=== PATIENT | female | born 1945 | race Caucasian/White ===

== ENCOUNTER 2018-09-09 12:58 | Emergency (ER) | payer MEDICARE ==
--- OUTSIDE RECORDS SUMMARY | 2018-09-09 13:11 | XMS REPORT | Continuity of Care Document ---
:1945 External Reference #:[id number] Author Name Lindsey Bradshaw Care Team Providers Name Role Phone Lizett Vargas MD Primary Care Physician Unavailable Payers Date Identification Numbers Payment Provider Subscriber Policy Number: [id number] Medicare Nury Morrison PayID: [id number] [address] [place] [address] Policy Number: [id number] [facility] Nury Morrison PayID: [id number] [address] [place] [address] Problems Active Problems Provider Date Pure hypercholesterolemia Rosalia Brown M.D., FACP Onset: 09/01/2010 Impaired fasting glycaemia Rosalia Brown M.D., FACP Onset: 09/01/2010 Cough variant asthma Rosalia Brown M.D., FACP Onset: 09/01/2010 Essential hypertension Carina Jaramillo N.Nicholas Onset: 03/08/2015 Localized, primary osteoarthritis of the Steph Brian Mejia Onset: 11/17/2015 pelvic region and thigh Family History Date Family Member(s) Observation Comments General Heart Disease General Cancer Father Emphysema at Age 59 Mother [place] Breast Cancer - at Age 59 Siblings 2 1 Sister - Hypoglycemia, Hemorhoids Age 79 1 Sister - Healthy Age 77 Social History Type Date Description Comments Sex Unknown Marital Status Lives With Alone 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 allergies and congestion Acetaminophen-Codeine 5 milliliters at 37.5ml J32.1 Mirta Wakefield, 2017 night as needed M.D. 120-12mg/5ML Solution for cough Omeprazole 1 by mouth every 30caps K21.9 Carina Jaramillo, 08/14/2017 40mg Capsules day N.P. Pravastatin Sodium take 1 tablet by 90tabs E78.00 Carina Jaramillo, 2017 40mg mouth at bedtime N.P. Tablets Advair Diskus Inhale 1 puff By 60units Carina Jaramillo, 06/09/2015 Mouth Two Times N.P. 500-50mcg/Dose Aerosol Daily Spiriva Handihaler Inhale Contents Of 30caps J45.991 Carina Jaramillo, 2015 18mcg One Capsule Via N.P. Capsules Handihaler Every Morning as Directed On Package Ventolin HFA 1-2 puffs every 1units 466.0 Gavin Easton NP 03/25/2014 108(90Base) 4-6 hours as mcg/Act Aerosol needed Sertraline HCL 1 by mouth every 300.00 Rosalia Brown, 03/06/2014 100mg day M.D., FACP Tablets Diltiazem HCL ER take 1 capsule by 90caps Carina Jaramillo, 10/06/2010 240mg mouth every day N.P. Caps ER 24HR Losartan Potassium take 1 tablet by 90tabs I10 Carina Jaramillo, 04/17/2010 100mg mouth once daily N.P. Tablets (pls complete labs for further refills) Mucinex D Unknown 60-600mg Tablets ER 12HR Fish Oil 1 by mouth every Unknown 1000mg Capsules day DR Methylphenidate HCL ER 1 tab po qd 30tabs Unknown 18mg Tablets ER Centrum Silver 1 po qd 30tabs Unknown Tablets Potassium Citrate 2 Tablets Two Rosalia Stephanie, 10mg Times Daily M.D., FACP Powder History Medications Azithromycin two tabs day one, 6tabs J45.41 Carina Jaramillo, 05/14/2018 - 250mg one daily till N.P. 05/24/2018 Tablets gone Prednisone 4 tablets by 40tabs J45.41 Carina Jaramillo, 05/14/2018 - 10mg Tablets mouth for 4 days N.P. 05/30/2018 3 tablets by mouth for 4 days 2 tablets by mouth for 4 days 1 tablet by mouth for 4 days Cheratussin ac 5 - 10 118ml J45.41 Carina Jaramillo, 05/14/2018 - milliliters every N.P. 08/20/2018 100-10mg/5ML Solution 6 hours as needed cough Augmentin 1 tab by mouth 20tabs J32.1 Mirta 01/31/2018 - 875-125mg twice a day X 10 Brian Wakefield 08/20/2018 Tablets days Ciprofloxacin HCL one by mouth 14tabs N39.0 Carina Jaramillo, 10/26/2017 - 250mg twice a day for 7 N.P. 01/31/2018 Tablets days Sulfamethoxazole/Trim one by mouth 14tabs N39.0 Carina Jaramillo, 10/12/2017 - ethoprim DS twice a day for 7 N.P. 10/12/2017 800-160mg days Tablets Ciprofloxacin HCL one by mouth 14tabs N39.0 Carina Jaramillo, 10/12/2017 - 250mg twice a day for 7 N.P. 10/19/2017 Tablets days Atorvastatin Calcium take one tablet 90tabs Carina Jaramillo, 01/11/2017 - by mouth at N.P. 08/14/2017 40mg Tablets bedtime Cheratussin ac 2 teaspoons by 120ml J45.991 Carina Jaramillo, 06/09/2015 - mouth every 4 N.P. 11/02/2015 100-10mg/5ML Syrup hours as needed Pravastatin Sodium take 1 tablet by 90tabs Carina Jaramillo, 09/21/2014 - 40mg mouth at bedtime N.P. 01/11/2017 Tablets Guaifenesin ac 1 teaspoon by 180ml 465.8 Carina Ella, 06/25/2014 - mouth every 4-6 N.P. 05/06/2015 100-10mg/5ML Syrup hours as needed cough Azithromycin 2 tabs by mouth 6tabs 465.8 James Odell NP 06/25/2014 - 250mg on day one 07/13/2014 Tablets followed by 1 tab daily for the last 4 days Triamcinolone Apply a thin 15gm 466.0 Gavin Easton NP 03/25/2014 - Acetonide layer to the 05/06/2015 0.5% Ointment affected area twice daily. Azithromycin 2 tabs by mouth 6tabs 466.0 Gavin Easton NP 03/25/2014 - 250mg every day x1 day, 03/30/2014 Tablets 1 tab by mouth every day x 4 days Azithromycin two tabs day one, 6tabs 466.0 Rosalia Brown, 03/04/2013 - 250mg one daily till M.D., FACP 05/07/2013 Tablets gone Sertraline HCL 3 by mouth every 270tabs 300.00 Rosalia Brown, 09/09/2012 - 25mg day M.D., FACP 03/06/2014 Tablets Trazodone HCL 1 tablet at 30tabs 780.52 Rosalia Brown, 07/30/2012 - 50mg bedtime as needed M.D., FACP 08/27/2013 Tablets Bupropion HCL XL 1 every day every 30tabs 300.00 Rosalia Brown, 07/30/2012 - 150mg morning M.D., FACP 09/09/2012 Tablets ER 24HR Tussin Cough DM 10 cc po every 4 118ml Rosalia Brown, 05/08/2012 - hours prn for M.D., FACP 10/10/2012 100-10mg/5ML Syrup cough Simvastatin take 1 tablet by 90tabs 272.0 Carina Ella, 03/13/2011 - 20mg mouth at bedtime N.P. 09/21/2014 Tablets Perforomist 1 treatment bid 180units Rosalia Brown, 01/10/2011 - 20mcg/2ML M.D., FACP 10/10/2012 Nebulizer Pulmicort inhale twice a 60units Lizett 01/04/2011 - 0.25mg/2ML day via nebulizer Cotton, M.DJamaal 05/08/2012 Suspension Simvastatin take 1 tablet by 90tabs Rosalia Brown, 09/30/2010 - 20mg mouth at bedtime M.D., FACP 03/13/2011 Tablets Syringes And [place] Use as Dir 10units Rosalia Brown, 09/20/2010 - 3ML, 1' 21 [place] # 10 M.D., FACP 10/10/2012 Lidocaine HCL MDV 2 cc inhaled via 30ampules 786.2 Rosalia Brown, 2010 - 1% nebulizer four M.D., FACP 10/10/2012 Solution times a day Metformin ER 1 tablet with 90units Rosalia Brown, 01/13/2010 - 500mg dinner M.D., FACP 03/13/2011 Benzonatate take 1 capsule by 30caps Rosalia Brown, 12/29/2009 - 200mg Caps mouth three times M.D., FACP 01/13/2010 a day Nystatin/Triamcinolon AAA qd prn 1tube Rosalia Brown, 12/07/2009 - e M.D., FACP 10/10/2012 838136-1.1Unit/GM-% Ointment Omeprazole 1 po bid 60caps Carina Jaramillo, 12/07/2009 - 20mg N.P. 08/14/[address] James take 1 capsule by 90caps Rosalia Brown, 09/21/2009 - 200mg mouth three times M.D., FACP 05/06/2015 Capsules a day if needed Advair Diskus 1 inhalation 3Months Rosalia Brown, - twice daily M.D., FACP 12/07/2009 100-50mcg/Dose Aerosol Cozaar 1 Tablet Daily 90tabs Rosalia Cochranon, - 100mg Tablets M.D., FACP 04/17/2010 Zocor 1 Tablet AT 90tabs Rosalia Brown, - 20mg Tablets Bedtime M.D., FACP 09/30/2010 Diltiazem CD 1 Capsule Daily 90caps Rosalia Stephanie, - 240mg Caps M.D., FACP 10/06/2010 ER 24HR Advair Diskus 1 puff twice Unknown - daily 06/09/2015 250-50mcg/Dose Aerosol Aspirin DR 1 everyother day Unknown - 81mg Tablets 08/20/2018 Methedwardphenedate 2 tablets po qd 100tabs Unknown - 5mg as needed 03/04/2013 Tablets Nasal [place] Unknown - 07/13/2014 Nortriptyline HCL 1 caps by mouth Unknown - 10mg every night as 08/20/2018 Capsules directed (not taking) Medications Administered in Office Medication SIG Qnty Indications Ordering Provider Date Inj, Regadenoson, 0.1 MG Gilda Ayala M.D. 09/17/2012 Injection Technetium TC 99M Tetrofosmin, Per Gilda Ayala M.D. 09/17/2012 Unit Dose Up To 40 Millicuries Injection Immunizations CPT Code Status Date Vaccine Lot # [id number] Given 12/26/2017 Fluzone High Dose 38968 Given 05/06/2015 Pneumonia Vaccine [id number] 30023 Given 03/06/2014 Pneumococcal Conjugate Vaccine 13 Valent For [id number] Intramuscular Use Q2035 Given 12/05/2013 Afluria Vaccine 20101 Given 09/09/2012 Tdap - Tetanus/Diptheria/Acellular Pertussis [id number] 89678 Given 12/07/2009 Influenza Virus 3Yrs & Over 49717 Given 04/29/2009 Influenza Virus Vaccine, Pandemic Formulation 36605 Given 11/30/2008 Influenza Virus 3Yrs & Over 82538 Given 09/29/2008 Zoster (Zostavax) Vital Signs Date Vital Result Comment 08/20/2018 1:13pm Height 64.5 inches 5'4.50" Weight 218.50 lb Heart Rate 81 /min BP Systolic 148 mmHg BP Diastolic 64 mmHg Body Temperature 96.9 F O2 % BldC Oximetry 95 % BMI (Body Mass Index) 36.9 kg/m2 05/14/2018 8:47am Height 64.5 inches 5'4.50" Weight 215.38 lb Heart Rate 80 /min BP Systolic 153 mmHg BP Diastolic 71 mmHg Body Temperature 96.9 F O2 % BldC Oximetry 98 % BMI (Body Mass Index) 36.4 kg/m2 01/31/2018 1:04pm Height 64.5 inches 5'4.50" Weight 221.00 lb Heart Rate 90 /min BP Systolic Sitting 144 mmHg BP Diastolic Sitting 72 mmHg Body Temperature 98.0 F O2 % BldC Oximetry 96 % BMI (Body Mass Index) 37.3 kg/m2 10/12/2017 9:02am Height 64.5 inches 5'4.50" Weight 223.00 lb Heart Rate 79 /min BP Systolic 122 mmHg BP Diastolic 66 mmHg Body Temperature 97.8 F O2 % BldC Oximetry 96 % BMI (Body Mass Index) 37.7 kg/m2 08/14/2017 12:44pm Height 64.5 inches 5'4.50" Weight 224.00 lb Heart Rate 88 /min BP Systolic 120 mmHg BP Diastolic 68 mmHg Body Temperature 98.1 F O2 % BldC Oximetry 95 % BMI (Body Mass Index) 37.9 kg/m2 06/07/2016 10:05am Weight 215.00 lb Heart Rate 68 /min BP Systolic Sitting 124 mmHg BP Diastolic Sitting 64 mmHg O2 % BldC Oximetry 98 % 12/22/2015 10:35am Heart Rate 73 /min BP Systolic 162 mmHg BP Diastolic 71 mmHg Pain Level 4 11/17/2015 9:36am Height 65 inches 5'5" Weight 237.00 lb Heart Rate 64 /min BP Systolic Sitting 124 mmHg BP Diastolic Sitting 72 mmHg Respiratory Rate 18 /min Pain Level 8 at the worst BMI (Body Mass Index) 39.4 kg/m2 11/02/2015 3:42pm Height 64.5 inches 5'4.50" Weight 237.00 lb Heart Rate 82 /min BP Systolic 142 mmHg BP Diastolic 72 mmHg Body Temperature 98.7 F O2 % BldC Oximetry 94 % BMI (Body Mass Index) 40.0 kg/m2 06/09/2015 11:21am Height 64.5 inches 5'4.50" Weight 229.00 lb Heart Rate 78 /min BP Systolic Sitting 142 mmHg BP Diastolic Sitting 88 mmHg Respiratory Rate 15 /min Body Temperature 98.7 F O2 % BldC Oximetry 98 % BMI (Body Mass Index) 38.7 kg/m2 05/06/2015 9:07am Height 64.5 inches 5'4.50" Weight 227.50 lb Heart Rate 79 /min BP Systolic Sitting 127 mmHg BP Diastolic Sitting 63 mmHg Respiratory Rate 18 /min Body Temperature 97.5 F Pain Level 2 O2 % BldC Oximetry 98 % BMI (Body Mass Index) 38.4 kg/m2 10/12/2014 3:12pm Height 65 inches 5'5" Weight 228.00 lb Pain Level 9 BMI (Body Mass Index) 37.9 kg/m2 09/21/2014 1:04pm Height 65 inches 5'5" Weight 228.00 lb Pain Level 1 BMI (Body Mass Index) 37.9 kg/m2 09/03/2014 8:45am Weight 228.00 lb Heart Rate 73 /min BP Systolic Sitting 133 mmHg BP Diastolic Sitting 64 mmHg 08/07/2014 10:35am Height 65 inches 5'5" Weight 220.00 lb Heart Rate 70 /min BP Systolic 152 mmHg BP Diastolic 89 mmHg Pain Level 0 BMI (Body Mass Index) 36.6 kg/m2 07/15/2014 2:49pm Height 65 inches 5'5" Weight 220.00 lb Heart Rate 71 /min BP Systolic Sitting 128 mmHg BP Diastolic Sitting 88 mmHg Pain Level 7 BMI (Body Mass Index) 36.6 kg/m2 06/25/2014 11:46am Height 65 inches 5'5" Weight 223.00 lb Heart Rate 76 /min BP Systolic Sitting 150 mmHg BP Diastolic Sitting 82 mmHg Body Temperature 96.5 F O2 % BldC Oximetry 96 % BMI (Body Mass Index) 37.1 kg/m2 03/25/2014 3:58pm Height 65 inches 5'5" Weight 225.00 lb Heart Rate 103 /min BP Systolic 160 mmHg 146/80 recheck BP Diastolic 80 mmHg 146/80 recheck Body Temperature 101.6 F O2 % BldC Oximetry 95 % BMI (Body Mass Index) 37.4 kg/m2 03/06/2014 10:30am Height 65 inches 5'5" Weight 220.50 lb Heart Rate 70 /min BP Systolic Sitting 130 mmHg BP Diastolic Sitting 60 mmHg Body Temperature 97.0 F BMI (Body Mass Index) 36.7 kg/m2 08/27/2013 11:54am Weight 206.50 lb Heart Rate 72 /min BP Systolic Sitting 146 mmHg BP Diastolic Sitting 76 mmHg Body Temperature 99.6 F 05/07/2013 9:04am Weight 209.00 lb Heart Rate 86 /min Respiratory Rate 15 /min Body Temperature 98.4 F 03/04/2013 10:11am Height 65 inches 5'5" Weight 207.50 lb Heart Rate 94 /min BP Systolic Sitting 140 mmHg BP Diastolic Sitting 82 mmHg Body Temperature 99.6 F O2 % BldC Oximetry 97 % BMI (Body Mass Index) 34.5 kg/m2 01/16/2013 2:46pm Height 65 inches 5'5" Weight 214.00 lb Heart Rate 64 /min BP Systolic 135 mmHg BP Diastolic 72 mmHg BMI (Body Mass Index) 35.6 kg/m2 01/14/2013 3:19pm Weight 214.00 lb Heart Rate 78 /min BP Systolic Sitting 124 mmHg BP Diastolic Sitting 82 mmHg 10/10/2012 1:18pm Weight 220.25 lb Heart Rate 72 /min BP Systolic Sitting 138 mmHg BP Diastolic Sitting 60 mmHg 09/09/2012 11:06am Height 65 inches 5'5" Weight 213.00 lb Heart Rate 88 /min BP Systolic Sitting 132 mmHg BP Diastolic Sitting 80 mmHg BMI (Body Mass Index) 35.4 kg/m2 07/30/2012 1:05pm Weight 219.00 lb Heart Rate 100 /min BP Systolic Sitting 144 mmHg BP Diastolic Sitting 70 mmHg 05/08/2012 9:50am Height 65 inches 5'5" Weight 211.00 lb Heart Rate 72 /min BP Systolic Sitting 140 mmHg BP Diastolic Sitting 60 mmHg BMI (Body Mass Index) 35.1 kg/m2 12/07/2011 2:31pm Height 65 inches 5'5" Weight 205.00 lb Heart Rate 64 /min BP Systolic 138 mmHg BP Diastolic 75 mmHg BMI (Body Mass Index) 34.1 kg/m2 03/13/2011 11:37am Height 65 inches 5'5" Weight 195.00 lb Heart Rate 68 /min BP Systolic Sitting 134 mmHg L BP Diastolic Sitting 70 mmHg L BMI (Body Mass Index) 32.4 kg/m2 09/15/2010 4:19pm Height 65 inches 5'5" Weight 195.00 lb Heart Rate 62 /min BP Systolic Sitting 128 mmHg BP Diastolic Sitting 70 mmHg O2 % BldC Oximetry 94 % BMI (Body Mass Index) 32.4 kg/m2 09/01/2010 12:56pm Height 65 inches 5'5" Weight 193.00 lb Heart Rate 78 /min BP Systolic Sitting 156 mmHg BP Diastolic Sitting 66 mmHg BMI (Body Mass Index) 32.1 kg/m2 04/21/2010 2:05pm Weight 209.00 lb Heart Rate 78 /min BP Systolic 124 mmHg BP Diastolic 70 mmHg 01/13/2010 2:26pm Weight 227.00 lb Heart Rate 72 /min BP Systolic 164 mmHg BP Diastolic 68 mmHg 12/07/2009 1:42pm Height 65 inches 5'5" Weight 227.00 lb Heart Rate 64 /min BP Systolic 138 mmHg BP Diastolic 64 mmHg BMI (Body Mass Index) 37.8 kg/m2 Results Test Date Facility Test Result H/L Range Note Laboratory test 11/27/2017 [facility] Surgical SEE RESULT 1 , [address] [place] [address] [phone] Urine Culture And 10/12/2017 [facility] Urine Culture SEE RESULT [address] [place] [address] [phone] Ua Routine 10/12/2017 [facility] Ua Specific 1015 Gem Ua PH 6 Ua Color yellow Ua Appera clear Ua WBC ++ Ua Protein negative Ua Glucose negative Ua Ketones negative Ua Bilirubin negtive Ua Urobilinogen negative Ua Nitrite negative Ua Occult Blood trace Lipid Profile 07/23/2017 [facility] Triglycerides 124 mg/dL 4 (Trig/Chol/HDL) [address] [place] [address] [phone] Cholesterol 205 mg/dL 5 HDL Cholesterol 75.5 mg/dL 6 LDL Cholesterol 105 mg/dL 7 Liver Function 07/23/2017 [facility] Total Protein 6.5 g/dL N 6.4-8.[address] [place] [address] [phone] Albumin 4.2 g/dL N 3.2-5.2 Globulin 2.3 g/dL N 2-4 Albumin/Globulin Ratio 1.8 N 1-3 Total Bilirubin 0.40 mg/dL N 0.2-1.0 Direct Bilirubin 0.10 mg/dL N 0.03-0.18 Indirect Bilirubin 0.3 mg/dL N 0.3-1.0 Alkaline Phosphatase 78 U/L N 34-104 Alt 30 U/L N 7-52 Ast 28 U/L N 13-39 Creatinine Clearance 01/16/2017 [facility] Urine Collection Time [address] [place] [address] [phone] Urine Total Volume 1550 mL Creatinine 1.47 mg/dL High 0.51-0.95 Urine Random Creatinine 78.23 mg/dL Creatinine Clearance 57 mL/min Low 88-128 Comp Metabolic Panel 01/10/2017 [facility] Sodium 141 mmol/L N 133-[address] [place] [address] [phone] Potassium 4.7 mmol/L N 3.5-5.0 Chloride 104 mmol/L N 101-111 Co2 Carbon Dioxide 32 mmol/L N 22-32 Anion Gap 5 mmol/L N 2-11 Glucose 97 mg/dL N 70-100 Blood Urea Nitrogen 31 mg/dL High 6-24 Creatinine 1.50 mg/dL High 0.51-0.95 BUN/Creatinine Ratio 20.7 High 8-20 Calcium 9.4 mg/dL N 8.6-10.3 Total Protein 6.7 g/dL N 6.4-8.9 Albumin 4.4 g/dL N 3.2-5.2 Globulin 2.3 g/dL N 2-4 Albumin/Globulin Ratio 1.9 N 1-3 Total Bilirubin 0.50 mg/dL N 0.2-1.0 Alkaline Phosphatase 86 U/L N 34-104 Alt 30 U/L N 7-52 Ast 29 U/L N 13-39 Egfr Non- 34.0 >60 Egfr 43.8 >60 8 Liver Function 01/10/2017 [facility] Direct 0.10 mg/dL N 0.03- 0.[address] [place] [address] [phone] Indirect Bilirubin 0.4 mg/dL N 0.3-1.0 Lipid Profile 01/10/2017 [facility] Triglycerides 85 mg/dL 9 (Trig/Chol/HDL) [address] [place] [address] [phone] Cholesterol 258 mg/dL 10 HDL Cholesterol 93.1 mg/dL 11 LDL Cholesterol 148 mg/dL 12 Lipid Profile 01/12/2015 [facility] Triglycerides 123 mg/dL N 13 (Trig/Chol/HDL) [address] [place] [address] [phone] Cholesterol 214 mg/dL N 14 HDL Cholesterol 85.9 mg/dL N 15 LDL Cholesterol 104 mg/dL N 16 Liver Function 01/12/2015 [facility] Direct 0.10 mg/dL N 0.03- 0.18 Panel [address] [place] [address] [phone] Indirect Bilirubin 0.3 mg/dL N 0.3-1.0 Comp Metabolic Panel 01/12/2015 [facility] Sodium 139 mmol/L N 133-145 [address] [place] [address] [phone] Potassium 4.7 mmol/L N 3.5-5.0 Chloride 103 mmol/L N 101-111 Co2 Carbon Dioxide 30 mmol/L N 22-32 Anion Gap 6 mmol/L N 2-11 Glucose 110 mg/dL High 70-100 Blood Urea Nitrogen 24 mg/dL N 6-24 Creatinine 1.46 mg/dL High 0.51-0.95 BUN/Creatinine Ratio 16.4 N 8-20 Calcium 9.5 mg/dL N 8.6-10.3 Total Protein 6.6 g/dL N 6.4-8.9 Albumin 4.2 g/dL N 3.2-5.2 Globulin 2.4 g/dL N 2-4 Albumin/Globulin Ratio 1.8 N 1-3 Total Bilirubin 0.40 mg/dL N 0.2-1.0 Alkaline Phosphatase 81 U/L N 34-104 Alt 23 U/L N 7-52 Ast 25 U/L N 13-39 Egfr Non- 35.2 N >60 Egfr 45.3 N >60 17 Liver Function 09/21/2014 [facility] Total Protein 6.9 g/dL N 6.4-8.9 Panel [address] [place] [address] [phone] Albumin 4.4 g/dL N 3.2-5.2 Globulin 2.5 g/dL N 2-4 Albumin/Globulin Ratio 1.8 N 1-3 Total Bilirubin 0.40 mg/dL N 0.2-1.0 Direct Bilirubin 0.10 mg/dL N 0.03-0.18 Indirect Bilirubin 0.3 mg/dL N 0.3-1.0 Alkaline Phosphatase 80 U/L N 34-104 Alt 22 U/L N 7-52 Ast 23 U/L N 13-39 Lipid Profile 09/21/2014 [facility] Triglycerides 112 mg/dL N 18 (Trig/Chol/HDL) [address] [place] [address] [phone] Cholesterol 279 mg/dL N 19 HDL Cholesterol 84.6 mg/dL N 20 LDL Cholesterol 172 mg/dL N 21 Laboratory test 03/06/2014 [facility] Hemoglobin A1c 5.8 5-7 finding Comp Metabolic Panel 09/13/2013 [facility] Sodium 138 mmol/L N 133-145 [address] [place] [address] [phone] Potassium 4.0 mmol/L N 3.7-5.6 Chloride 106 mmol/L N 101-111 Co2 Carbon Dioxide 27 mmol/L N 22-32 Anion Gap 5 mmol/L N 2-11 Glucose 136 mg/dL High 70-100 Blood Urea Nitrogen 34 mg/dL High 6-24 Creatinine 1.28 mg/dL High 0.51-0.95 BUN/Creatinine Ratio 26.6 High 8-20 Calcium 9.2 mg/dL N 8.6-10.3 Total Protein 6.9 g/dL N 6.4-8.9 Albumin 4.3 g/dL N 3.2-5.2 Globulin 2.6 g/dL N 2-4 Albumin/Globulin Ratio 1.7 N 1-3 Total Bilirubin 0.20 mg/dL N 0.2-1.0 Alkaline Phosphatase 74 U/L N 34-104 Alt 29 U/L N 7-52 Ast 26 U/L N 13-39 Egfr Non- 41.2 N >60 Egfr 53.0 N >60 22 Laboratory test 09/13/2013 [facility] Magnesium 2.0 mg/dL N 1.9-2.7 finding [address] [place] [address] [phone] Troponin I 0.01 ng/mL N <0.03 23 TSH (Thyroid Stimulating Horm) 1.91 IU/mL N 0.34-5.60 CBC Auto Diff 09/13/2013 [facility] White Blood 9.9 10^3/uL N 4.8-10.[address] [place] [address] [phone] Red Blood Count 4.64 10^6/uL N 4.0-5.4 Hemoglobin 13.1 g/dL N 12.0-16.0 Hematocrit 39 % N 35-47 Mean Corpuscular Volume 85 fL N 80-97 Mean Corpuscular Hemoglobin 28 pg N 27-31 Mean Corpuscular HGB Conc 33 g/dL N 31-36 Red Cell Distribution Width 14 % N 10.5-15 Platelet Count 279 10^3/uL N 150-450 Mean Platelet Volume 7 um3 Low 7.4-10.4 Abs Neutrophils 6.3 10^3/uL N 1.5-7.7 Abs Lymphocytes 2.2 10^3/uL N 1.0-4.8 Abs Monocytes 1.1 10^3/uL High 0-0.8 Abs Eosinophils 0.2 10^3/uL N 0-0.6 Abs Basophils 0.1 10^3/uL N 0-0.2 Abs Nucleated RBC 0 10^3/uL N Granulocyte % 64.0 % N 38-83 Lymphocyte % 22.2 % Low 25-47 Monocyte % 11.0 % High 1-9 Eosinophil % 2.1 % N 0-6 Basophil % 0.7 % N 0-2 Nucleated Red Blood Cells % 0 N Comp Metabolic Panel 08/22/2013 [facility] Sodium 141 mmol/L N 133-[address] [place] [address] [phone] Potassium 5.2 mmol/L N 3.7-5.6 Chloride 104 mmol/L N 101-111 Co2 Carbon Dioxide 30 mmol/L N 22-32 Anion Gap 7 mmol/L N 2-11 Glucose 101 mg/dL High 70-100 Blood Urea Nitrogen 28 mg/dL High 6-24 Creatinine 1.35 mg/dL High 0.51-0.95 BUN/Creatinine Ratio 20.7 High 8-20 Calcium 9.7 mg/dL N 8.6-10.3 Total Protein 6.8 g/dL N 6.4-8.9 Albumin 4.5 g/dL N 3.2-5.2 Globulin 2.3 g/dL N 2-4 Albumin/Globulin Ratio 2.0 N 1-3 Total Bilirubin 0.40 mg/dL N 0.2-1.0 Alkaline Phosphatase 76 U/L N 34-104 Alt 22 U/L N 7-52 Ast 26 U/L N 13-39 Egfr Non- 38.8 N >60 Egfr 49.9 N >60 25 Lipid Profile 08/22/2013 [facility] Triglycerides 95 mg/dL N 26 (Trig/Chol/HDL) [address] [place] [address] [phone] Cholesterol 221 mg/dL N 27 HDL Cholesterol 79.7 mg/dL N 28 LDL Cholesterol 122 mg/dL N 29 Laboratory test 08/22/2013 [facility] Hemoglobin A1c 6.4 % High Less than [address] [place] [address] [phone] Surgical 09/19/2012 [facility] S RUN [address] DATE: [place] [address] [phone] <SEE NOTE> Clotest 09/19/2012 [facility] Clotest (SEE [address] NOTE) [place] [address] [phone] CBC With Manual 09/19/2012 [facility] White Blood 7.3 4.8- 10.[address] Count 10^3/uL [place], [place] [address] [phone] Red Blood Count 4.56 10^6/uL 4.0-5.4 Hemoglobin 13.3 g/dL 12.0-16.0 Hematocrit 40 % 35-47 Mean Corpuscular Volume 88 fL 80-97 Mean Corpuscular Hemoglobin 29 pg 27-31 Mean Corpuscular HGB Conc 33 g/dL 31-36 Red Cell Distribution Width 14 % 10.5-15 Platelet Count 286 10^3/uL 150-450 Mean Platelet Volume 8 um3 7.4-10.4 Abs Neutrophils 4.3 10^3/uL 1.5-7.7 Abs Lymphocytes 1.5 10^3/uL 1.0-4.8 Abs Monocytes 1.0 10^3/uL High 0-0.8 Abs Eosinophils 0.4 10^3/uL 0-0.6 Abs Basophils 0 10^3/uL 0-0.2 Abs Nucleated RBC 0 10^3/uL Neutrophil % 60 % 38-83 Lymphocytes % 26 % 25-47 Monocytes % 10 % 0-13 Eosinophils % 3 % 0-6 Basophil % 1 % 0-2 RBC Morphology Normal Normal Laboratory test 09/19/2012 [facility] TSH (Thyroid 2.18 0.34- 5.[address] Stimulating miu/[place] [address] Horm) [phone] Laboratory test 04/30/2012 [facility] Glucose 85 mg/dL 70- 100 33 finding [address] [place] [address] [phone] Liver Function 04/30/2012 [facility] Total Protein 6.4 g/dL 6.2-8.1 Panel [address] [place] [address] [phone] Albumin 4.1 g/dL 3.2-5.2 Globulin 2.3 g/dL 2-4 Albumin/Globulin Ratio 1.8 1-3 Total Bilirubin 0.5 mg/dL 0.4-1.5 Direct Bilirubin < 0.1 mg/dL Low 0.1-0.5 Indirect Bilirubin (SEE NOTE) mg/dL 0.3-1.0 34 Alkaline Phosphatase 85 U/L 30-110 Alt 26 U/L 14-54 Ast 27 U/L 12-42 Lipid Profile 04/30/2012 [facility] Triglycerides 65 mg/dL 40 -200 (Trig/Chol/HDL) [address] [place] [address] [phone] Cholesterol 223 mg/dL High Less than 200 HDL Cholesterol 104 mg/dL High 40-60 35 Cholesterol/HDL Ratio 2.1 Average 1-4.44 LDL Cholesterol 106.0 mg/dL High Less Than 100 36 Laboratory test 03/07/2011 [facility] Hemoglobin A1c 5.6 % Less Than 37 finding [address] [facility] [address] [place] [address] [phone] Glucose 83 mg/dL 70-100 Lipid Profile 03/07/2011 [facility] Triglyceride 83 mg/dL 40- 200 (Trig/Chol/HDL) [address] [place] [address] [phone] Cholesterol 257 mg/dL High Less Than 200 38 High Density Lipoprotein 90 mg/dL High 40-60 39 Cholesterol/HDL Ratio 2.86 AVERAGE 1-4.44 Low Density Lipoprotein 150 mg/dL High Less Than 100 40 Sensitivities For Urine Culture 11/20/2010 [facility] Ampicillin 8 S [address] [place] [address] [phone] Ciprofloxacin <=0.5 S Nitrofurantoin <=16 S Levofloxacin 2 S Linezolid >=8 R Penicillin 0.25 S Tetracycline >=16 R Tigecycline <=0.12 S Vancomycin 2 S Urine Culture & 11/20/2010 [facility] Urine Culture ENTEROCOCCUS BLADIMIR [address] Sensitivi <SEE NOTE> [place] [address] [phone] Urine Culture Sensitivi ENTEROCOCCUS BLADIMIR <SEE NOTE> 42 Laboratory test 11/20/2010 [facility] Lipase 50 U/L 22-[address] [place] [address] [phone] CBC With Manual 11/20/2010 [facility] White Blood 11.7 CUMM High 4.8-10.[address] [place] [address] [phone] Red Cell Count 4.86 CUMM 4.2-5.4 Hemoglobin 14.0 g/dL 12.0-16.0 Hematocrit 41 % 35-47 Mean Corpuscular Volume 84 um3 79-97 Mean Corpuscular Hemoglob 29 pg 27-31 Mean Corpuscular HGB Cone 34 g/dL 32-36 Redcell Distribution WDTH 14 % 10.5-15 Platelet Count 258 CUMM 150-450 Mean Platelet Volume 8.0 um3 7.4-10.4 Polysegmented Neutrophil 84 % High 38-83 Lymphocyte 8 % Low 25-47 Monocyte 7 % 0-13 Eosinophil 1 % 0-6 Absolute Neutrophil Count 9.8 RBC Morphology NORMAL Comp Metabolic Panel 11/20/2010 [facility] Sodium 137 mmol/L 135-[address] [place] [address] [phone] Potassium 4.2 mmol/L 3.5-5.0 Chloride 103 mmol/L 101-111 Co2 (Carbon Dioxide) 26.0 mmol/L 22-32 Anion Gap 8.0 mmol/L 2-11 43 Glucose 120 mg/dL High 70-100 BUN 29 mg/dL High 6-24 Creatinine 1.4 mg/dL 0.50-1.40 One Over Creatinine 0.71 BUN/Creatinine Ratio 20.7 High 8-20 Calcium 9.5 mg/dL 8.1-9.9 Total Protein 6.4 GM/DL 6.2-8.1 Albumin 4.0 GM/DL 3.2-5.2 Globulin 2.4 GM/DL 2-4 Albumin/Globulin Ratio 1.7 1-3 Bilirubin Total 0.8 mg/dL 0.4-1.5 44 Alkaline Phosphatase 69 U/L 30-110 Alt (SGPT) 28 U/L 14-54 Ast (Sgot) 29 U/L 12-42 eGFR Non- 37.5 > 60 eGFR 48.2 > 60 45 Urinalysis W/Microscopic 11/20/2010 [facility] Ua Color YELLOW Yellow [address] [place] [address] [phone] Appearance-Urine CLEAR Clear Specific Gem-Ur 1.015 1.010-1.030 Esterase-Urine 1+ Abnormal Negative Nitrite NEGATIVE Negative Krryqrojkooe-Cl-QHU NEGATIVE Negative Protein-Urine NEGATIVE Negative PH-Urine 7.0 5-9 Blood-Urine NEGATIVE Negative Ketones-Urine TRACE Abnormal Negative Bilirubin-Ur NEGATIVE Negative Glucose-Urine NEGATIVE Negative WBC-Urine 3-6 0-5 RBC-Urine 0-2 0-2 Epith Cells-Ur FEW None Bacteria-Urine 2+ None Laboratory test 08/17/2010 [facility] Hemoglobin A1c 5.9 % Less Than [address] 6[address]0 [place] [address] [phone] Insulin 5.9 mcIU/mL 2.6-24.9 47 Vitamin D, 1,25 Dihydroxy 46 pg/mL 18-78 48 CBC With 08/17/2010 [facility] White Blood 14.0 CUMM High 4.8- 10.8 Manual Diff [address] [place] [address] [phone] Red Cell Count 4.71 CUMM 4.2-5.4 Hemoglobin 12.8 g/dL 12.0-16.0 Hematocrit 40 % 35-47 Mean Corpuscular Volume 85 um3 79-97 Mean Corpuscular Hemoglob 27 pg 27-31 Mean Corpuscular HGB Cone 32 g/dL 32-36 Redcell Distribution WDTH 14 % 10.5-15 Platelet Count 263 CUMM 150-450 Mean Platelet Volume 8.8 um3 7.4-10.4 Polysegmented Neutrophil 54 % 38-83 Lymphocyte 17 % Low 25-47 Monocyte 7 % 0-13 Eosinophil 21 % High 0-6 Atypical Lymph 1 % 0-6 Absolute Neutrophil Count 7.5 RBC Morphology NORMAL Manual Diff Comments (SEE NOTE) 49 Laboratory test finding 08/17/2010 [facility] Glucose 93 mg/dL 70-[address] [place] [address] [phone] Ferritin 16 NG/ML 11.0-307 Vitamin B12 730 pg/mL 180-914 Thyroxine Free 0.74 ng/dL 0.61-1.24 T3 Free 2.85 pg/mL 2.39-6.79 TSH 1.67 MIU/ML 0.34-5.60 Lipid Profile 08/17/2010 [facility] Triglyceride 51 mg/dL 40- 200 (Trig/Chol/HDL) [address] [place] [address] [phone] Cholesterol 182 mg/dL Less Than 200 50 High Density Lipoprotein 82 mg/dL High 40-60 51 Cholesterol/HDL Ratio 2.22 AVERAGE 1-4.44 Low Density Lipoprotein 90 mg/dL Less Than 100 52 1 [id number] 2 SEE RESULT BELOW Name: NURY MORRISON : [address]: Damon Padilla MD Acct: [id number] Unit: [id number] AGE: 72 Location: [facility] Re11/27/17 SEX: F Status: DEP REF SPEC: [id number] RAMIREZ: 11/27/17-141 [facility] [address]: Damon Padilla MD REQ: [id number] RECD: 11/27/17 STATUS: ANNA LOPEZ DR: Carina Jaramillo 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 Colon, cecum, biopsy: -- Tubular adenomas (2). -- No high-grade dysplasia or malignancy. 2. Colon, ascending, biopsy: -- Tubular adenoma. -- No high grade dysplasia or malignancy. 3. Colon, mid ascending, biopsy: -- Tubular adenoma. -- No high grade dysplasia or malignancy. 4. Colon, proximal transverse, biopsy: -- Tubular adenoma. -- No high grade dysplasia or malignancy. 5. Colon, at 55 cm, biopsy: -- Tubular adenoma. -- No high grade dysplasia or malignancy. 6. Colon, at 25 cm, biopsy: -- Tubular adenoma. -- No high grade dysplasia or malignancy. CONTINUED ON NEXT PAGE DEPARTMENT OF PATHOLOGY, [address] [place] [address] Dwight Rodriguez M.D. Director [facility] # [id number] RUN DATE: 11/28/17 [facility] LAB LIVE PAGE 2 Patient: NURY MORRISON [id number] (Continued) CLINICAL HISTORY (Continued) CLINICAL HISTORY History of polyps POST-OPERATIVE DIAGNOSIS Colonoscopy: cecal polyps (2) - biopsy; ascending, mid ascending, proximal transverse, 55 cm, 25 cm, all snare GROSS DESCRIPTION 1. The specimen is received in formalin labeled, Biopsy Cecal Polyps and consists of three speckled asher-pink irregular to polypoid soft tissue fragments ranging from 0.3 x 0.2 x 0.2 cm to 0.5 x 0.4 x 0.3 cm, which are entirely submitted in one cassette. 2. The specimen is received in formalin labeled, Ascending Colon Polyp, and consists of two yellow-white irregular to polypoid soft tissue fragments measuring 0.3 x 0.2 x 0.1 cm and 0.3 x 0.2 x 0.2 cm, which are entirely submitted in one cassette. 3. The specimen is received in formalin labeled, Mid-Ascending Colon Polyp , consists of a 0.8 x 0.4 x 0.3 cm asher-white irregular to polypoid soft tissue fragment, which is entirely submitted in one cassette. 4. The specimen is received in formalin labeled, Proximal Transverse Colon Polyp, and consists of a 0.6 x 0.4 x 0.3 cm asher-white irregular to polypoid soft tissue fragment, which is entirely submitted in one cassette. 5. The specimen is received in formalin labeled, Colon Polyp at 55 cm, consists of a 1.0 x 0.5 by up to 0.3 cm aggregate of yellow white irregular to polypoid soft tissue fragments, which is entirely submitted in one cassette. 6. The specimen is received in formalin labeled, Colon Polyp at 25 Cm, and consists of a 0.8 by up to 0.5 x 0.4 cm white-pink irregular to polypoid soft tissue fragment, which is inked, trisected and entirely submitted in one cassette. Signed by and Reported on: Ciara Ayala MD 11/28/17 1114 END OF REPORT DEPARTMENT OF PATHOLOGY, [address] [place] [address] Dwight Rodriguez M.D. Director [facility] # [id number] 3 SEE RESULT BELOW Name: NURY MORRISON : [address]: Carina Jaramillo NP Acct: [id number] Unit: [id number] AGE: 72 Location: [facility] Re10/12/17 SEX: F Status: REG REF SPEC: [id number] RAMIREZ: 10/12/17 [facility] [address]: Carina Jaramillo NP REQ: [id number] RECD: 10/12/17 STATUS: COMP _ SOURCE: URINE SPDESC: ORDERED: Urine Culture COMMENTS: [id number] Urine Source: Random Procedure Result Reported Site Urine Culture Final 10/13/17- 1249 ML No Growth (<1,000 CFU/mL) * ML - Main Lab . END OF REPORT DEPARTMENT OF PATHOLOGY, [address] [place] [address] Dwight Rodriguez M.D. Director [facility] # [id number] 4 Desirable: <150 Borderline High: 150-199 High: 200-499 Very High: >500 5 Desirable: <200 Borderline High: 200-239 High: >239 6 Low: <40 Desirable: 40-60 High: >60 7 Desirable: <100 Near Optimal: 100-129 Borderline High: 130-159 High: 160-189 Very High: >189 8 Because ethnic data is not always readily available, this report includes an eGFR for both -Americans and non- Americans. The National Kidney Disease Education Program (NKDEP) does not endorse the use of the MDRD equation for patients that are not between the ages of 18 and 70, are , have extremes of body size, muscle mass, or nutritional status, or are non- or non-. According to the National Kidney Foundation, irrespective of diagnosis, the stage of the disease is based on the level of kidney function: Stage Description GFR(mL/min/1.73 m(2)) 1 Kidney damage with normal or decreased GFR 90 2 Kidney damage with mild decrease in GFR 60-89 3 Moderate decrease in GFR 30-59 4 Severe decrease in GFR 15-29 5 Kidney failure <15 (or dialysis) 9 Desirable: <150 Borderline High: 150-199 High: 200-499 Very High: >500 10 Desirable: <200 Borderline High: 200-239 High: >239 11 Low: <40 Desirable: 40-60 High: >60 12 Desirable: <100 Near Optimal: 100-129 Borderline High: 130-159 High: 160-189 Very High: >189 13 Desirable <150 Borderline high 150-199 High 200-499 Very High >500 14 Desirable <200 Borderline high 200-239 High >239 15 Low <40 Desirable: 40-60 High: >60 16 Desirable: <100 mg/dL Near Optimal: 100-129 mg/dL Borderline High: 130-159 mg/dL High: 160-189 mg/dL Very High: >189 mg/dL 17 Because ethnic data is not always readily available, this report includes an eGFR for both -Americans and non- Americans. The National Kidney Disease Education Program (NKDEP) does not endorse the use of the MDRD equation for patients that are not between the ages of 18 and 70, are , have extremes of body size, muscle mass, or nutritional status, or are non- or non-. According to the National Kidney Foundation, irrespective of diagnosis, the stage of the disease is based on the level of kidney function: Stage Description GFR(mL/min/1.73 m(2)) 1 Kidney damage with normal or decreased GFR 90 2 Kidney damage with mild decrease in GFR 60-89 3 Moderate decrease in GFR 30-59 4 Severe decrease in GFR 15-29 5 Kidney failure <15 (or dialysis) 18 Desirable <150 Borderline high 150-199 High 200-499 Very High >500 19 Desirable <200 Borderline high 200-239 High >239 20 Low <40 Desirable: 40-60 High: >60 21 Desirable: <100 mg/dL Near Optimal: 100-129 mg/dL Borderline High: 130-159 mg/dL High: 160-189 mg/dL Very High: >189 mg/dL 22 Because ethnic data is not always readily available, this report includes an eGFR for both -Americans and non- Americans. The National Kidney Disease Education Program (NKDEP) does not endorse the use of the MDRD equation for patients that are not between the ages of 18 and 70, are , have extremes of body size, muscle mass, or nutritional status, or are non- or non-. According to the National Kidney Foundation, irrespective of diagnosis, the stage of the disease is based on the level of kidney function: Stage Description GFR(mL/min/1.73 m(2)) 1 Kidney damage with normal or decreased GFR 90 2 Kidney damage with mild decrease in GFR 60-89 3 Moderate decrease in GFR 30-59 4 Severe decrease in GFR 15-29 5 Kidney failure <15 (or dialysis) 23 Reference Range and Interpretation: TnI (ng/mL) Interpretation Less Than 0.03 ng/mL Not supportive of diagnosis of GA 0.03 - 0.50 ng/mL Indeterminate: suggest serial studies if clinically indicated. Greater than 0.5 ng/mL Consistent with diagnosis of GA 24 FASTING 12 HOUR 25 Because ethnic data is not always readily available, this report includes an eGFR for both -Americans and non- Americans. The National Kidney Disease Education Program (NKDEP) does not endorse the use of the MDRD equation for patients that are not between the ages of 18 and 70, are , have extremes of body size, muscle mass, or nutritional status, or are non- or non-. According to the National Kidney Foundation, irrespective of diagnosis, the stage of the disease is based on the level of kidney function: Stage Description GFR(mL/min/1.73 m(2)) 1 Kidney damage with normal or decreased GFR 90 2 Kidney damage with mild decrease in GFR 60-89 3 Moderate decrease in GFR 30-59 4 Severe decrease in GFR 15-29 5 Kidney failure <15 (or dialysis) 26 Desirable <150 Borderline high 150-199 High 200-499 Very High >500 27 Desirable <200 Borderline high 200-239 High >239 28 Low <40 Desirable: 40-60 High: >60 29 Desirable <100 Near Optimal 100-129 Borderline high 130-159 High 160-189 Very High >189 30 Therapeutic target for the treatment of diabetes Mellitus patients is <7% HBA1C, and in selective patients <6.0%.Please refer to Citizen Of [place] Diabetes Association Diabetic care guidelines for further information. 31 RUN DATE: 09/20/12 [facility] LAB LIVE PAGE 1 RUN TIME: 25[address] [place], [place] [address] Specimen Inquiry Name: NURY MORRISON : [address]: Damon Padilla MD Acct: [id number] Unit: [id number] AGE: 67 Location: ENDO Re09/19/12 SEX: F Status: REG REF SPEC: [id number] RAMIREZ: 09/19/12- SUBM DR: Damon Padilla MD REQ: [id number] RECD: 09/19/12 STATUS: ANNA LOPEZ DR: Rosalia Brown MD _ ORDERED: LEVEL IV/2 FINAL DIAGNOSIS 1. Esophagus, biopsy: A. Benign squamous mucosa with mild reactive hyperplasia. B. No evidence of increased intraepithelial eosinophils. 2. Colon, hepatic flexure, biopsy: A. Tubular adenoma. B. No high grade dysplasia or malignancy. CLINICAL HISTORY Gastroesophageal reflux disease; screening colonoscopy with history of polyps POST-OPERATIVE DIAGNOSIS Esophagus - hiatal hernia, biopsied for eosinophilic esophagitis; stomach - gastritis, biopsied; duodenum - normal. Screening colonoscopy to cecum - 2 polyps hepatic flexure GROSS DESCRIPTION 1. The specimen is received in formalin labeled Nury Morrison, Esophageal Biopsy, and consists of three asher-white focally pink portions of tissue that measure 0.5 x 0.1 x 0.1 cm., 0.4 x 0.3 x 0.1 cm., and 0.4 x 0.2 x 0.1 cm. Submitted entirely, one cassette. 2. The specimen is received in formalin labeled Nury Morrison, Hepatic Flexure Polyps, and consists of two asher-pink polypoid fragments of tissue that measure 0.4 x 0.2 x 0.2 cm. and 0.3 x 0.2 x 0.2 cm. Submitted entirely, one cassette. 1. CONTINUED ON NEXT PAGE * ML=Testing performed at Main Lab DEPARTMENT OF PATHOLOGY, [facility] [address] [place] [address] Dwight Rodriguez M.D. Director [facility] Permit #[id number] RUN DATE: 09/20/12 [facility] LAB LIVE PAGE 2 RUN TIME: 4992 [facility] [address] [place], [place] [address] Specimen Inquiry Patient: NURY MORRISON [id number] (Continued) GROSS DESCRIPTION (Continued) Signed (signature on file) Ciara Ayala MD 10/25 1457 END OF REPORT * ML=Testing performed at Main Lab DEPARTMENT OF PATHOLOGY, [facility] [address] [place], [place] [address] Dwight Rodriguez M.D. Director [facility] Permit #[id number] RUN DATE: 09/20/12 [facility] LAB LIVE PAGE 1 RUN TIME: 811 [facility] [address] [place], [place] [address] Specimen Inquiry Name: NURY MORRISON : [address]: Damon Padilla MD Acct: [id number] Unit: [id number] AGE: 67 Location: ENDO Re09/19/12 SEX: F Status: REG REF SPEC: [id number] RAMIREZ: 09/19/12-[address] [facility] [address]: Damon Padilla MD REQ: [id number] RECD: 09/19/12 STATUS: COMP JOHN DR: Rosalia Brown MD _ SOURCE: GAS ANTRUM SPDESC: ORDERED: Clotest Procedure Result Verified Site Clotest Final 09/20/12810 ML Clotest Negative END OF REPORT * ML=Testing performed at Main Lab DEPARTMENT OF PATHOLOGY, [address] [place] [address] Dwight Rodriguez M.D. Director [place] [employer] Permit #[id number] 33 FASTING 12 HOUR Do in 2 months. 34 UNABLE TO CALCULATE IND.BILI D.BILI IS <0.1 35 HDL Interpretation: Undesirable: High Risk: Less than 40 MG/DL Desirable: Low Risk: Greater than 60 MG/DL 36 LDL Interpretation: Low Risk Optimal Level: LDL Less than 100 MG/DL Near or Above Optimal: LDL 100-129 MG/DL Borderline High Risk: LDL 130-159 MG/DL High Risk: LDL 160-189 MG/DL Very High Risk: LDL Greater than 189 MG/DL 37 THERAPEUTIC TARGET FOR THE TREATMENT OF DIABETES MELLITUS PATIENTS IS <7% HBA1C, AND IN SELECTIVE PATIENTS <6.0%. PLEASE REFER TO [place] [employer]OC[employer]ATION DIABETIC CARE GUIDELINES FOR FURTHER INFORMATION. 38 CHOLESTEROL INTERPRETATION: Desirable: Less than 200 MG/DL Borderline-High Risk: 200-239 MG/DL High-Risk: 240 MG/DL and over 39 HDL INTERPRETATION: Undesirable: High Risk: Less than 40 MG/DL Desirable: Low Risk: Greater than 60 MG/DL 40 LDL INTERPRETATION: Low Risk Optimal Level: LDL Less than 100 MG/DL Near or Above Optimal: LDL 100-129 MG/DL Borderline High Risk: LDL 130-159 MG/DL High Risk: LDL 160-189 MG/DL Very High Risk: LDL Greater than 189 MG/DL 41 ENTEROCOCCUS FAECALIS 100^75-100,000 ORGANISMS/ML (MANY)^CCU 42 ENTEROCOCCUS FAECALIS 100^75-100,000 ORGANISMS/ML (MANY)^CCU 43 Anion gap measurement may be of limited value in the presence of any alkalosis, especially in a combined acid base disorder. . 44 A metabolite of Naproxen, O-desmethylnaproxen, has been shown to interfere with the Jendrassik-Yvonne method for measuring total bilirubin. Samples from patients who have taken Naproxen have shown spurious elevation in total bilirubin levels. 45 Because ethnic data is not always readily available, this report includes an eGFR for both -Americans and non- Americans. The National Kidney Disease Education Program (NKDEP) does not endorse the use of the MDRD equation for patients that are not between the ages of 18 and 70, are , have extremes of body size, muscle mass, or nutritional status, or are non- or non-. According to the National Kidney Foundation, irrespective of diagnosis, the stage of the disease is based on the level of kidney function: Stage Description GFR(mL/min/1.73 m(2)) 1 Kidney damage with normal or decreased GFR 90 2 Kidney damage with mild decrease in GFR 60-89 3 Moderate decrease in GFR 30-59 4 Severe decrease in GFR 15-29 5 Kidney failure <15 (or dialysis) 46 THERAPEUTIC TARGET FOR THE TREATMENT OF DIABETES MELLITUS PATIENTS IS <7% HBA1C, AND IN SELECTIVE PATIENTS <6.0%. PLEASE REFER TO [place] [employer]ATION DIABETIC CARE GUIDELINES FOR FURTHER INFORMATION. 47 Test Performed by: [facility] Dpt of Lab Med and Pathology [address] [id number] Theatrical Variety Agent: Andrew Covington III, M.D. 48 Test Performed by: [facility] Dpt of Lab Med and Pathology [address] [address] Theatrical Variety Agent: Andrew Covington III, M.D. 49 Eosinophilia. REVIEWED BY EAN MARSHALL MD 50 CHOLESTEROL INTERPRETATION: Desirable: Less than 200 MG/DL Borderline-High Risk: 200-239 MG/DL High-Risk: 240 MG/DL and over 51 HDL INTERPRETATION: Undesirable: High Risk: Less than 40 MG/DL Desirable: Low Risk: Greater than 60 MG/DL 52 LDL INTERPRETATION: Low Risk Optimal Level: LDL Less than 100 MG/DL Near or Above Optimal: LDL 100-129 MG/DL Borderline High Risk: LDL 130-159 MG/DL High Risk: LDL 160-189 MG/DL Very High Risk: LDL Greater than 189 MG/DL Procedures Date Code Description Status 08/28/2017 [id number] Mammogram Completed 08/08/2016 44962 Repair Immediate Wound < 2.6CM Completed Face/Ear/Eyelid/Nose/Lip/Muc Mem 08/08/2016 65283 Excise Malig Lesion 1.1-2CM Face/Ear/Eyelid/Nose/Lip Completed 07/26/2016 04934 Layer Closure Of Wounds 2.6CM - 7.5CM Completed Neck,Hands,Feet,Genitalia 07/26/2016 39323 Excise Malig Lesion 1.1-2CM Completed Scalp/Neck/Hands/Feet/Genitalia 06/29/2016 67695 Each Additional Biopsy Completed 06/29/2016 82212 Biopsy Skin Lesion Single Completed 05/21/2015 93318 ECHO Stress Test Incl Perf Contiuous ekg Monitoring Completed W/Phys Superv 05/21/2015 48647 Stress ECHO Interpretation/Report Hospital Completed 05/21/2015 53130 Treadmill Interp/Report Only Completed 05/21/2015 20706 Stress Test Supervsn W/Out I/R Completed 05/12/2015 [id number] Mammogram Completed 05/06/2015 42788 EKG Tracing & Interpretation Completed 07/15/2014 80066 CLSD TX Distal Fib FX (Lateral Malleolus) w/o Completed manipulation 09/18/2013 [id number] Mammogram Completed 03/04/2013 76268 EKG Tracing & Interpretation Completed 02/20/2013 21825 Rad Exam; Wrist Limited, 2 Views Completed 01/30/2013 88876 Rad Exam; Wrist Limited, 2 Views Completed 01/16/2013 97308 CLST TRMT Distal Radial FX Completed 09/19/2012 [id number] Colonoscopy Completed 09/17/2012 61591 Myocardial Perfusion Imaging Tomographic (Spect) Completed Multiple Studies 09/17/2012 33508 Stress Test Completed 09/16/2012 [id number] Mammogram Completed 01/31/2012 11913 Rad Exam; Ankle Comp Completed 12/25/2011 01150 Rad Exam; Ankle Comp Completed 12/15/2011 02841 ORIF Open TX Distal Fibular FX Incl Internal Fixation Completed When Perfom 12/15/2011 61710 ORIF Open TX Distal Fibular FX Incl Internal Fixation Completed When Perfom 12/12/2011 58252 EKG, Interpretation Only Completed 12/07/2011 80451 closed treatment of medial malleolus fx w/o Completed maniplulation 09/15/2010 08789 Noninvasive Ear Or Pulse Oximetry For Oxygen Completed Saturation 06/09/2010 [id number] Diabetic Retinal Eye Exam Completed 12/15/2009 [id number] Bone Mineral Density Test Completed 12/07/2009 64065 EKG Tracing & Interpretation Completed 10/01/2008 [id number] Mammogram Completed 09/29/2008 97091 EKG Tracing & Interpretation Completed Encounters Type Date Location Provider Dx Diagnosis Office Visit 05/23/2018 11:20a [facility] Derm[facility]ology Conrad Giron MD L29.8 Other pruritus L82.1 Other seborrheic keratosis L85.3 Xerosis cutis B35.1 Tinea unguium Z08 Encntr for follow-up exam after trtmt for malignant neoplasm Z85.828 Personal history of other malignant neoplasm of skin Office Visit 05/14/2018 [facility] Internal Carina Jaramillo J45.41 Moderate 8:40a Medicine - [facility] N.P. persistent asthma with (acute) exacerbation Office Visit 01/31/2018 DoNotUse [facility] Mirta J32.1 Chronic frontal 1:00p Internal [place] sinusitis Medicine-[place] Office Visit 11/21/2017 [facility] Dermatology Conrad Giron L82.1 Other seborrheic 10:30a keratosis D22.5 Melanocytic nevi of trunk I78.8 Other diseases of capillaries R60.0 Localized edema Z08 Encntr for follow-up exam after trtmt for malignant neoplasm Z85.828 Personal history of other malignant neoplasm of skin Office Visit 10/12/2017 DoNotUse [facility] Internal Carina N39.0 Urinary tract 9:00a Medicine-[facility] Brittneen, N.P. infection, site not specified Office Visit 08/14/2017 [facility] Internal Medicine - Carina Z00.00 Encntr for 1:00p [facility] Varn, N.P. general adult medical exam w/o abnormal findings Z12.31 Encntr screen mammogram for malignant neoplasm of breast E78.00 Pure hypercholesterolemia, unspecified R73.01 Impaired fasting glucose J45.991 Cough variant asthma K21.9 Gastro-esophageal reflux disease without esophagitis Z85.828 Personal history of other malignant neoplasm of skin M25.551 Pain in right hip Office Visit 05/23/2017 9:30a [facility] Dermatology Conrad Giron MD K13.0 Diseases of lips L30.8 Other specified dermatitis R60.0 Localized edema L82.1 Other seborrheic keratosis B35.3 Tinea pedis B35.1 Tinea unguium Z08 Encntr for follow-up exam after trtmt for malignant neoplasm Z85.828 Personal history of other malignant neoplasm of skin Office Visit 08/17/2016 11:30a [facility] Jennifer Giron B37.2 Candidiasis of MD skin and nail Z48.02 Encounter for removal of sutures Office Visit 06/29/2016 9:30a [facility] Jennifer Giron L82.1 Other seborrheic MD keratosis L30.4 Erythema intertrigo D48.5 Neoplasm of uncertain behavior of skin C44.319 Basal cell carcinoma of skin of other parts of face Office Visit 06/07/2016 10:00a [facility] Carina Jaramillo, M25.551 Pain in right Medicine - [facility] N.P. hip L98.9 Disorder of the skin and subcutaneous tissue, unspecified Office Visit 12/22/2015 10:15a [facility] Steph Mejia, M25.551 Pain in right Of C.M.A. M.D. hip M16.11 Unilateral primary osteoarthritis, right hip Office Visit 11/17/2015 9:30a [facility] Steph Mejia, M25.551 Pain in right Of C.M.A. M.D. hip M16.11 Unilateral primary osteoarthritis, right hip E66.01 Morbid (severe) obesity due to excess calories Office Visit 11/02/2015 3:40p [facility] Carina Jaramillo, M25.551 Pain in right Medicine - [facility] N.P. hip Office Visit 06/09/2015 11:20a [facility] Carina Jaramillo, J45.991 Cough variant Medicine - [facility] N.P. asthma Office Visit 05/06/2015 9:00a [facility] Carina Jaramillo, Z00.00 Encntr for Medicine - [facility] N.P. general adult medical exam w/o abnormal findings Z12.31 Encntr screen mammogram for malignant neoplasm of breast E78.0 Pure hypercholesterolemia R73.01 Impaired fasting glucose J45.991 Cough variant asthma K21.9 Gastro-esophageal reflux disease without esophagitis R06.02 Shortness of breath Z23 Encounter for immunization Office Visit 09/03/2014 8:40a [facility] Carina Jaramillo, 401.1 Hypertension Benign Medicine - N.P. [facility] Office Visit 06/25/2014 11:40a [facility] James Odell NP 465.8 Upper Respiratory Medicine - Infections Acute [facility] Other Multiple Sites 465.9 URI Upper Respiratory Infections Acute Unspec Sites Office Visit 03/25/2014 4:00p [facility] Gavin Easton NP 466.0 Bronchitis Acute Medicine - [facility] Office Visit 03/06/2014 10:40a [facility] Carina Jaramillo, V70.0 Examination Medicine - N.P. General Medical [facility] Routine AT [facility] 401.1 Hypertension Benign 272.4 Hyperlipidemia Other Unspec 790.21 Impaired Fasting Glucose 493.82 cough variant asthma 530.81 Esophageal Reflux 625.6 Stress Incontinence Female V03.82 Streptococcus Pneumoniae Vaccination Spec Other Office Visit 08/27/2013 11:40a [facility] Carina Jaramillo, 790.21 Impaired Medicine - [facility] N.P. Fasting Glucose 272.4 Hyperlipidemia Other Unspec 401.1 Hypertension Benign V76.10 Screening For Malignant Neoplasm Breast Office Visit 05/07/2013 9:00a [facility] Rosalia Brown, 388.31 Tinnitus Subjective Medicine - M.D., FACP [facility] Office Visit 03/04/2013 10:00a [facility] Rosalia Brown, V72.84 Examination Medicine - M.D., FACP Preoperative Unspec [facility] 366.10 Cataract Senile Unspec 493.82 cough variant asthma 466.0 Bronchitis Acute Office Visit 01/14/2013 3:20p [facility] Carina Jaramillo, 719.43 Pain Joint Forearm Medicine - N.P. [facility] Office Visit 10/10/2012 1:00p [facility] Rosalia Brown, 300.00 Anxiety State Medicine - M.D., FACP Unspec [facility] Office Visit 09/09/2012 10:40a [facility] Rosalia Brown, V70.0 Examination Medicine - M.D., FACP General Medical [facility] Routine AT [facility] 401.1 Hypertension Benign 272.0 Hypercholesterolemia Pure 493.82 cough variant asthma 300.00 Anxiety State Unspec V76.10 Screening For Malignant Neoplasm Breast 786.09 Dyspnea & Respiratory Abnormalities Other V06.1 Ymktowwozc-Ptbfuvi-Reakakmv Combined (DTaP) Office Visit 07/30/2012 1:00p [facility] Medicine Rosalia Brown M.D., 786.2 Cough - [facility] FACP 300.00 Anxiety State Unspec 780.52 Insomnia Unspecified Office Visit 05/08/2012 [facility] Rosalia Brown, 272.0 Hypercholesterolemia Pure 9:40a Medicine - MBrian, FACP [facility] 780.52 Insomnia Unspecified Office Visit 12/07/2011 2:30p Orthopedic k Vee, 824.2 FX Ankle Lateral Services Of Domo Torres Malleolus Closed 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 Office Visit 03/13/2011 [facility] Rosalia Brown, 272.0 Hypercholesterolemia Pure 11:40a Medicine Reanna Torres, FACP [facility] Office Visit 09/15/2010 DO Not Use Rosalia Brown, 786.2 Cough 4:20p Oscar Torres, FACP Office Visit 09/01/2010 DO Not Use Rosaliashine Brown, 272.0 Hypercholesterolemia Pure 1:00p Oscar Torres, FACP 786.2 Cough 790.21 Impaired Fasting Glucose 380.4 Impacted Cerumen Office Visit 04/21/2010 2:00p DO Not Use [employer] Member[employer] Rosalia Stephanie, 786.2 Cough M.D., FACP 272.0 Hypercholesterolemia Pure 401.1 Hypertension Benign 790.21 Impaired Fasting Glucose Office Visit 01/13/2010 2:30p DO Not Use Rosalia Stephanie, 790.21 Impaired [place] [employer] Member-[place] John M.D., FACP Fasting Glucose 272.0 Hypercholesterolemia Pure 401.1 Hypertension Benign Office Visit 12/07/2009 1:30p DO Not Use Rosalia Stephanie, V70.0 Examination [employer] Member-[employer] John M.D., FACP General Medical Routine AT Health Care Facility V76.2 Screening Malignant Neoplasm Cervix 272.0 Hypercholesterolemia Pure 401.1 Hypertension Benign 493.82 cough variant asthma V04.81 Need For Prophylactic Vaccination & Inoculation/Influenza Office Visit 09/21/2009 DO Not Use Rosalia Stephanie, 558.9 Gastroenteritis & 1:00p [employer] Member-[employer] John M.D., FACP Colitis Noninfectious Other Office Visit 09/09/2009 DO Not Use Rosalia Stephanie, 558.9 Gastroenteritis & 10:15a [employer] Member[employer] John M.D., FACP Colitis Noninfectious Other Office Visit 08/18/2009 DO Not Use Carina 724.3 Sciatica 8:30a [employer] Varn, N.P. Office Visit 04/29/2009 DO Not Use Rosalia Stephanie, 786.2 Cough 1:30p [employer] Member[employer] John M.D., FACP 401.1 Hypertension Benign 493.90 Asthma Unspec W/O Status Asthmaticus V04.81 Need For Prophylactic Vaccination & Inoculation/Influenza Office Visit 01/20/2009 2:00p DO Not Use Rosalia Stephanie, 493.90 Asthma Unspec W/O [employer] Member-[employer] John M.D., FACP Status Asthmaticus 401.1 Hypertension Benign Office Visit 11/30/2008 DO Not Use Rosalia Stephanie, 272.4 Hyperlipidemia Other 10:00a [employer] Member-[employer] John M.D., FACP Unspec 401.1 Hypertension Benign V04.81 Need For Prophylactic Vaccination & Inoculation/Influenza Office Visit 09/29/2008 10:15a DO Not Use Rosalia Stephanie, V70.0 Examination [employer] Member-[place] M.D., FACP General Medical Routine AT Health Care Facility 272.4 Hyperlipidemia Other Unspec 493.82 cough variant asthma 401.1 Hypertension Benign V05.8 Single Disease Spec Other Vaccination & Inoculation Office 07/01/2008 DO Not Use Rosalia 272.0 Hypercholesterolemia Visit 9:15a [facility] Brown M.D., Pure FACP 427.89 Cardiac Dysrhythmia Other 493.90 Asthma Unspec W/O Status Asthmaticus 401.1 Hypertension Benign Plan of Treatment Future Appointment(s):08/26/2019 1:00 pm - Carina Jaramillo N.P. at [facility] Medicine - [facility]02/20/2019 11:00 am - Carina Jaramillo NJesús. at [facility] Carina Jaramillo NJamaalPJamaalZ00.00 Encounter for general adult medical examination without abnoComments:For your routine health maintenance: I would encourage you to continue with regular exercise program. You need to be getting between 1,000 - 1,200 mg of Calcium in daily. The best way to supplement what you get in your diet is to drink Calcium fortified orange juice. If you take a Calcium supplement be sure it has Vitamin D in it to help absorption. Your colonoscopy is up to date. You had this in 2012.Your Tetanus immunization is up to date. You received this in 2012. It is good for 10 years unless you have a major injury, then it is good for 5 years. Your pneumonia immunizations are up to date. You had these in 2014 and 2015. You will not need these again. There is a new shingles vaccine available, Shingrix. This is a series of 2 injections given 2 - 6 months apart. This is available at the pharmacy and I urge you to get this.Z12.31 Encounter for screening mammogram for malignant neoplasm ofComments:I have ordered your routine screening mammogram. The imaging department will give you your results at the time of your visit. I encourage you to do self exams. If you should notice any masses or thickening, please give the office a call.E78.00 Pure hypercholesterolemia, unspecifiedNew Labs:Lipid Profile (Trig/Chol/HDL), Ordered : 08/20/18Comp Metabolic Panel, Ordered: 08/20/18Comments:I have ordered blood work to check your cholesterol. You need to fast for 10 hours prior to getting your blood drawn. I will contact you with your results. Continue your current management.R73.01 Impaired fasting glucoseNew Labs:Hemoglobin A1c (Glyco HGB), Ordered: 08/20/18Comments:I am ordering a Hgb A1C level. This test reflects your average blood sugar over the past 3 months. The office will contact you with the result.J45.991 Cough variant asthmaComments:For your asthma:Continue your current management. If at any time you feel you need to use your rescue inhaler more than twice a week, please contact the office. This indicates your asthma is not well controlled and you need an adjustment in your medication.K21.9 Gastro-esophageal reflux disease without esophagitisComments: For your esophageal reflux: Continue with your current management. I advise you to avoid food triggers. These include: Spicy, greasy, and acidic foods, along with coffee and alcohol.N95.8 Other specified menopausal and perimenopausal disordersComments:I am ordering a Dexascan to see what your current bone density is. I will contact you with your [id number] Essential ( primary) hypertensionComments:For your high blood pressure: Continue with your current medication. I would like you to continue to monitor your blood pressure at home. If you find your readings are consistently elevated over 140/90, please give the office a call.Follow up:HTN f/u 6 mo Medicare Wellness Visit 1 yearF32.9 Major depressive disorder, single episode, unspecifiedComments:For your depression: Continue with your current management. If you should feel your depression is not well managed at any point, please give the office a call.
--- OUTSIDE RECORDS SUMMARY | 2018-09-09 13:11 | XMS REPORT | Continuity of Care Document ---
:1945 External Reference #:[id number] Author Name Colleen Henley Care Team Providers Name Role Phone Lizett Vargas MD Primary Care Physician Unavailable Payers Date Identification Numbers Payment Provider Subscriber Policy Number: [id number] Medicare Nury Morrison PayID: [id number] [address] [place] [address] Policy Number: [id number] [facility] Nury Morrison PayID: [id number] [address] [place] [address] Problems Active Problems Provider Date Pure hypercholesterolemia Rosalia Brown M.D., FACP Onset: 09/01/2010 Impaired fasting glycaemia Rosalia Brown M.D., FACP Onset: 09/01/2010 Cough variant asthma Rosalia Brown M.D., FACP Onset: 09/01/2010 Essential hypertension Carina Jaramillo N.P. Onset: 03/08/2015 Localized, primary osteoarthritis of the Stephwillis Mejia M.D. 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 Clarinex 1 tab by mouth 90tabs Carina [...] HFA 1-2 puffs every 1units 466.0 Gavin Easton, EVERARDO 03/25/2014 108(90Base) 4-6 hours as mcg/Act Aerosol needed Sertraline HCL 1 by mouth every 300.00 Rosalia Cochranon, 03/06/2014 100mg day M.D., FACP Tablets Diltiazem HCL ER take 1 capsule by 90caps Carina Jaramillo, 10/06/2010 240mg mouth every day N.P. Caps ER 24HR Losartan Potassium take 1 tablet by 90tabs I10 Carina Jaramillo, 04/17/2010 100mg mouth once daily N.P. Tablets (pls complete labs for further refills) Garlic Oil Unknown 500mg Capsules HM Anti-Diarrheal Unknown Anti-Gas 2-125mg Tablets Mucinex D Unknown 60-600mg Tablets ER 12HR [...] 40mg mouth at bedtime N.P. 01/11/2017 Tablets Azithromycin 2 tabs by mouth 6tabs 465.8 James Odell NP 06/25/2014 - 250mg on day one 07/13/2014 Tablets followed by 1 tab daily for the last 4 days Guaifenesin ac 1 teaspoon by 180ml 465.8 Carina Jaramillo, 06/25/2014 - mouth every 4-6 N.P. 05/06/2015 100-10mg/5ML Syrup hours as needed cough Azithromycin 2 tabs by mouth 6tabs 466.0 Gavin Easton NP 03/25/2014 - 250mg every day x1 day, 03/30/2014 Tablets 1 tab by mouth every day x 4 days Triamcinolone Apply a thin 15gm 466.0 Gavin Easton NP 03/25/2014 - Acetonide layer to the 05/06/2015 0.5% Ointment affected area twice daily. Azithromycin two tabs day one, 6tabs 466.0 [...] 1 every day every 30tabs 300.00 Rosalia Stephanie, 07/30/2012 - 150mg morning M.D., FACP 09/09/2012 Tablets ER 24HR Tussin Cough DM 10 cc po every 4 118ml Rosalia Stephanie, 05/08/2012 - hours prn for M.D., FACP 10/10/2012 100-10mg/5ML Syrup cough Simvastatin take 1 tablet by 90tabs 272.0 Carina Jaramillo, 03/13/2011 - 20mg mouth at bedtime N.P. 09/21/2014 Tablets Perforomist 1 treatment bid 180units Rosalia Brown, 01/10/2011 - 20mcg/2ML M.D., FACP 10/10/2012 Nebulizer Pulmicort inhale twice a 60units Lizett 01/04/2011 - 0.25mg/2ML day via nebulizer Cotton, M.D. 05/08/2012 Suspension Simvastatin take 1 tablet by 90tabs Rosalia Brown, 09/30/2010 - 20mg mouth at bedtime M.D., FACP 03/13/2011 Tablets Syringes And Sidell Use as Dir 10units Rosalia Brown, 09/20/2010 [...] Brown, 12/07/2009 - e M.D., FACP 10/10/2012 995534-9.1Unit/GM-% Ointment Omeprazole 1 po bid 60caps Carina Jaramillo, 12/07/2009 - 20mg N.P. 08/14/[address] Benzojose take 1 capsule by 90caps Rosalia Brown, 09/21/2009 - 200mg mouth three times M.D., FACP 05/06/2015 Capsules a day if needed Advair Diskus 1 inhalation 3Months Rosalia Cochranon, - twice daily M.D., FACP 12/07/2009 100-50mcg/Dose Aerosol Cozaar 1 Tablet Daily 90tabs Rosaliashine Brown, - 100mg Tablets M.D., FACP 04/17/2010 Zocor 1 Tablet AT 90tabs Rosalia Stephanie, - 20mg Tablets Bedtime M.D., FACP 09/30/2010 Diltiazem CD 1 Capsule Daily 90caps Rosalia Stephanie, - 240mg Caps M.D., FACP 10/06/2010 ER 24HR Advair Diskus 1 puff twice Unknown - daily 06/09/2015 250-50mcg/Dose Aerosol Aspirin DR 1 everyother day Unknown - 81mg Tablets 08/20/2018 DR Methelphenedate 2 tablets po qd 100tabs Unknown - 5mg as needed 03/04/2013 Tablets Nasal [place] Unknown - 07/13/2014 Nortriptyline HCL 1 caps [...] CPT Code Status Date Vaccine Lot # [id number] Given 12/26/2017 Fluzone High Dose 81631 Given 05/06/2015 Pneumonia Vaccine [id number] 11335 Given 03/06/2014 Pneumococcal Conjugate Vaccine 13 Valent For [id number] Intramuscular Use Q2035 Given 12/05/2013 Afluria Vaccine 80610 Given 09/09/2012 Tdap - Tetanus/Diptheria/Acellular Pertussis [id number] 80406 Given 12/07/2009 Influenza Virus 3Yrs & Over 19221 Given 04/29/2009 Influenza Virus Vaccine, Pandemic Formulation 48887 Given 11/30/2008 Influenza Virus 3Yrs & Over 62729 Given 09/29/2008 Zoster (Zostavax) Vital Signs Date Vital Result Comment 09/02/2018 10:57am Height 64.5 inches 5'4.50" Weight 213.00 lb Heart Rate 81 /min BP Systolic 106 mmHg BP Diastolic 62 mmHg Body Temperature 97.0 F O2 % BldC Oximetry 96 % BMI (Body Mass Index) 36.0 kg/m2 08/20/2018 1:13pm Height 64.5 inches 5'4.50" Weight [...] Result H/L Range Note Laboratory test 11/27/2017 [facility] Surgical SEE RESULT 1 , [address] [place] [address] [phone] Urine Culture And 10/12/2017 [facility] Urine Culture SEE RESULT [address] [place] [address] [phone] Ua Routine 10/12/2017 [facility] Ua Specific 1015 [place] Ua PH 6 Ua Color yellow Ua Appera clear Ua WBC ++ Ua Protein negative Ua Glucose negative Ua Ketones negative Ua Bilirubin negtive Ua Urobilinogen negative Ua Nitrite negative Ua Occult Blood trace Lipid Profile 07/23/2017 [facility] Triglycerides 124 mg/dL 4 (Trig/Chol/HDL) [address] [place] [address] [phone] Cholesterol 205 mg/dL 5 HDL Cholesterol 75.5 mg/dL 6 LDL Cholesterol 105 mg/dL 7 Liver Function 07/23/2017 [facility] Total Protein 6.5 g/dL N 6.4-8.[address] [place] [address] [phone] Albumin 4.2 g/dL N 3.2-5.2 Globulin 2.3 g/dL N 2-4 Albumin/Globulin Ratio 1.8 N 1-3 Total Bilirubin 0.40 mg/dL N 0.2-1.0 Direct Bilirubin 0.10 mg/dL N 0.03-0.18 Indirect Bilirubin 0.3 mg/dL N 0.3-1.0 Alkaline Phosphatase 78 U/L N 34-104 Alt 30 U/L N 7-52 Ast 28 U/L N 13-39 Creatinine Clearance 01/16/2017 [facility] Urine Collection Time [address] [place] [address] [phone] Urine Total Volume 1550 mL Creatinine 1.47 mg/dL High 0.51-0.95 Urine Random Creatinine 78.23 mg/dL Creatinine Clearance 57 mL/min Low 88-128 Comp Metabolic Panel 01/10/2017 [facility] Sodium 141 mmol/L N 133-[address] [place] [address] [phone] Potassium 4.7 mmol/L N 3.5-5.0 Chloride 104 [...] Egfr 43.8 >60 8 Liver Function 01/10/2017 [facility] Direct 0.10 mg/dL N 0.03- 0.[address] [place] [address] [phone] Indirect Bilirubin 0.4 mg/dL N 0.3-1.0 Lipid Profile 01/10/2017 [facility] Triglycerides 85 mg/dL 9 (Trig/Chol/HDL) [address] [place] [address] [phone] Cholesterol 258 mg/dL 10 HDL Cholesterol 93.1 mg/dL 11 LDL Cholesterol 148 mg/dL 12 Lipid Profile 01/12/2015 [facility] Triglycerides 123 mg/dL N 13 (Trig/Chol/HDL) [address] [place] [address] [phone] Cholesterol 214 mg/dL N 14 HDL Cholesterol 85.9 mg/dL N 15 LDL Cholesterol 104 mg/dL N 16 Liver Function 01/12/2015 [facility] Direct 0.10 mg/dL N 0.03- 0.[address] [place] [address] [phone] Indirect Bilirubin 0.3 mg/dL N 0.3-1.0 Comp Metabolic Panel 01/12/2015 [facility] Sodium 139 mmol/L N 133-145 [address] [place] [address] [phone] Potassium 4.7 mmol/L N 3.5-5.0 Chloride 103 [...] 45.3 N >60 17 Liver Function 09/21/2014 [facility] Total Protein 6.9 g/dL N 6.4-8.[address] [place] [address] [phone] Albumin 4.4 g/dL N 3.2-5.2 Globulin 2.5 g/dL N 2-4 Albumin/Globulin Ratio 1.8 N 1-3 Total Bilirubin 0.40 mg/dL N 0.2-1.0 Direct Bilirubin 0.10 mg/dL N 0.03-0.18 Indirect Bilirubin 0.3 mg/dL N 0.3-1.0 Alkaline Phosphatase 80 U/L N 34-104 Alt 22 U/L N 7-52 Ast 23 U/L N 13-39 Lipid Profile 09/21/2014 [facility] Triglycerides 112 mg/dL N 18 (Trig/Chol/HDL) [address] [place] [address] [phone] Cholesterol 279 mg/dL N 19 HDL Cholesterol 84.6 mg/dL N 20 LDL Cholesterol 172 mg/dL N 21 Laboratory test 03/06/2014 [facility] Hemoglobin A1c 5.8 5-7 finding Comp Metabolic Panel 09/13/2013 [facility] Sodium 138 mmol/L N 133-145 [address] [place] [address] [phone] Potassium 4.0 mmol/L N 3.7-5.6 Chloride 106 [...] 53.0 N >60 22 Laboratory test 09/13/2013 [facility] Magnesium 2.0 mg/dL N 1.9-2.7 finding [address] [place] [address] [phone] Troponin I 0.01 ng/mL N <0.03 23 TSH (Thyroid Stimulating Horm) 1.91 IU/mL N 0.34-5.60 CBC Auto Diff 09/13/2013 [facility] White Blood 9.9 10^3/uL N 4.8-10.[address] [place] [address] [phone] Red Blood Count 4.64 10^6/uL N 4.0-5.4 [...] % 0 N Comp Metabolic Panel 08/22/2013 [facility] Sodium 141 mmol/L N 133-[address] [place] [address] [phone] Potassium 5.2 mmol/L N 3.7-5.6 Chloride 104 [...] 49.9 N >60 25 Lipid Profile 08/22/2013 [facility] Triglycerides 95 mg/dL N 26 (Trig/Chol/HDL) [address] [place] [address] [phone] Cholesterol 221 mg/dL N 27 HDL Cholesterol 79.7 mg/dL N 28 LDL Cholesterol 122 mg/dL N 29 Laboratory test 08/22/2013 [facility] Hemoglobin A1c 6.4 % High Less than [address] [place] [address] [phone] Surgical 09/19/2012 [facility] S RUN [address] DATE: [place] [address] [phone] <SEE NOTE> Clotest 09/19/2012 [facility] Clotest (SEE [address] NOTE) [place] [address] [phone] CBC With Manual 09/19/2012 [facility] White Blood 7.3 4.8- 10.[address] Count 10^3/[place] [address] [phone] Red Blood Count 4.56 10^6/uL 4.0-5.4 Hemoglobin [...] RBC Morphology Normal Normal Laboratory test 09/19/2012 [facility] TSH (Thyroid 2.18 0.34- 5.[address] Stimulating miu/[place] [address] Horm) [phone] Laboratory test 04/30/2012 [facility] Glucose 85 mg/dL 70- [address] [place] [address] [phone] Liver Function 04/30/2012 [facility] Total Protein 6.4 g/dL 6.2-8.[address] [place] [address] [phone] Albumin 4.1 g/dL 3.2-5.2 Globulin 2.3 g/dL 2-4 Albumin/Globulin Ratio 1.8 1-3 Total Bilirubin 0.5 mg/dL 0.4-1.5 Direct Bilirubin < 0.1 mg/dL Low 0.1-0.5 Indirect Bilirubin (SEE NOTE) mg/dL 0.3-1.0 34 Alkaline Phosphatase 85 U/L 30-110 Alt 26 U/L 14-54 Ast 27 U/L 12-42 Lipid Profile 04/30/2012 [facility] Triglycerides 65 mg/dL 40 -200 (Trig/Chol/HDL) [address] [place] [address] [phone] Cholesterol 223 mg/dL High Less than 200 HDL Cholesterol 104 mg/dL High 40-60 35 Cholesterol/HDL Ratio 2.1 Average 1-4.44 LDL Cholesterol 106.0 mg/dL High Less Than 100 36 Laboratory test 03/07/2011 [facility] Hemoglobin A1c 5.6 % Less Than [address] [place] [address] [phone] Glucose 83 mg/dL 70-100 Lipid Profile 03/07/2011 [facility] Triglyceride 83 mg/dL 40- 200 (Trig/Chol/HDL) [address] [place] [address] [phone] Cholesterol 257 mg/dL High Less Than 200 38 High Density Lipoprotein 90 mg/dL High 40-60 39 Cholesterol/HDL Ratio 2.86 AVERAGE 1-4.44 Low Density Lipoprotein 150 mg/dL High Less Than 100 40 Sensitivities For Urine Culture 11/20/2010 [facility] Ampicillin [address] [place] [address] [phone] Ciprofloxacin <=0.5 S Nitrofurantoin <=16 S Levofloxacin 2 S Linezolid >=8 R Penicillin 0.25 S Tetracycline >=16 R Tigecycline <=0.12 S Vancomycin 2 S Urine Culture & 11/20/2010 [facility] Urine Culture ENTEROCOCCUS BLADIMIR [address] Sensitivi <SEE NOTE> [place] [address] [phone] Urine Culture Sensitivi ENTEROCOCCUS BLADIMIR <SEE NOTE> 42 Laboratory test 11/20/2010 [facility] Lipase 50 U/L 22-[address] [place] [address] [phone] CBC With Manual 11/20/2010 [facility] White Blood 11.7 CUMM High 4.8-10.[address] [place] [address] [phone] Red Cell Count 4.86 CUMM 4.2-5.4 Hemoglobin [...] RBC Morphology NORMAL Comp Metabolic Panel 11/20/2010 [facility] Sodium 137 mmol/L 135-145 [address] [place] [address] [phone] Potassium 4.2 mmol/L 3.5-5.0 Chloride 103 mmol/L [...] 48.2 > 60 45 Urinalysis W/Microscopic 11/20/2010 [facility] Ua Color YELLOW Yellow [address] [place] [address] [phone] Appearance-Urine CLEAR Clear Specific [place]-Ur 1.015 1.010-1.030 Esterase-Urine 1+ Abnormal Negative Nitrite NEGATIVE Negative Ihnnexhbajsl-Pu-MYY NEGATIVE Negative Protein-Urine NEGATIVE Negative PH-Urine 7.0 5-9 Blood-Urine NEGATIVE Negative Ketones-Urine TRACE Abnormal Negative Bilirubin-Ur NEGATIVE Negative Glucose-Urine NEGATIVE Negative WBC-Urine 3-6 0-5 RBC-Urine 0-2 0-2 Epith Cells-Ur FEW None Bacteria-Urine 2+ None Laboratory test 08/17/2010 [facility] Hemoglobin A1c 5.9 % Less Than [address] [place] [address] [phone] Insulin 5.9 mcIU/mL 2.6-24.9 47 Vitamin D, 1,25 Dihydroxy 46 pg/mL 18-78 48 CBC With 08/17/2010 [facility] White Blood 14.0 CUMM High 4.8- 10.8 Manual Diff [address] [place] [address] [phone] Red Cell Count 4.71 CUMM 4.2-5.4 Hemoglobin [...] (SEE NOTE) 49 Laboratory test finding 08/17/2010 [facility] Glucose 93 mg/dL 70-[address] [place] [address] [phone] Ferritin 16 NG/ML 11.0-307 Vitamin B12 730 pg/mL 180-914 Thyroxine Free 0.74 ng/dL 0.61-1.24 T3 Free 2.85 pg/mL 2.39-6.79 TSH 1.67 MIU/ML 0.34-5.60 Lipid Profile 08/17/2010 [facility] Triglyceride 51 mg/dL 40- 200 (Trig/Chol/HDL) [address] [place] [address] [phone] Cholesterol 182 mg/dL Less Than 200 50 High Density Lipoprotein 82 mg/dL High 40-60 51 Cholesterol/HDL Ratio 2.22 AVERAGE 1-4.44 Low Density Lipoprotein 90 mg/dL Less Than 100 52 1 [id number] 2 SEE RESULT BELOW Name: NURY MORRISON : [address]: Damon Padilla MD Acct: [id number] Unit: [id number] AGE: 72 Location: 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 Colon, cecum, biopsy: -- [...] CONTINUED ON NEXT PAGE DEPARTMENT OF PATHOLOGY, [address] [place] [address] Dwight Rodriguez M.D. Director [facility] # [id number] RUN DATE: 11/28/17 [facility] LAB LIVE PAGE 2 Patient: NURY MORRISON [id number] (Continued) CLINICAL HISTORY (Continued) CLINICAL HISTORY History [...] 1114 END OF REPORT DEPARTMENT OF PATHOLOGY, [address] [place] [address] Dwight Rodriguez M.D. Director [facility] # [id number] 3 SEE RESULT BELOW Name: NURY MORRISON : [address]: Carina Jaramillo NP Acct: [id number] Unit: [id number] AGE: 72 Location: [facility] Re10/12/17 SEX: F Status: REG REF SPEC: [id number] RAMIREZ: 10/12/[address]: Carina Jaramillo NP REQ: [id number] RECD: 10/12/17 STATUS: COMP _ SOURCE: URINE [facility]: ORDERED: Urine Culture COMMENTS: [id number] Urine Source: Random Procedure Result Reported Site Urine Culture Final 10/13/17- 1249 ML No Growth (<1,000 CFU/mL) * ML - Main Lab . END OF REPORT DEPARTMENT OF PATHOLOGY, [address] [place] [address] Dwight Rodriguez M.D. Director [facility] # [id number] Desirable: <150 Borderline High: 150-199 High: [...] 0.03 ng/mL Not supportive of diagnosis of [place] 0.03 - 0.50 ng/mL Indeterminate: suggest serial studies if clinically indicated. Greater than 0.5 ng/mL Consistent with diagnosis of UT 24 FASTING 12 HOUR 25 Because ethnic [...] and in selective patients <6.0%.Please refer to [employer] Diabetic care guidelines for further information. 31 RUN DATE: 09/20/12 [facility] LAB LIVE PAGE 1 RUN TIME: [address] [place] [address] Specimen Inquiry Name: NURY MORRISON : [address]: Damon Padilla MD Acct: [id number] Unit: [id number] AGE: 67 Location: ENDO Re09/19/12 SEX: F Status: REG REF SPEC: [id number] RAMIREZ: 09/19/12- SUBM DR: Damon Padilla MD REQ: [id number] RECD: 09/19/12 STATUS: ANNA LOPEZ DR: Rosalia [...] performed at Main Lab DEPARTMENT OF PATHOLOGY, [facility] [place], [place] [address] Dwight Rodriguez M.D. Director [facility] Permit #[id number] RUN DATE: 09/20/12 [facility] LAB LIVE PAGE 2 RUN TIME: 5450 [facility] [place], [place] [address] Specimen Inquiry Patient: NURY MORRISON [id number] (Continued) GROSS DESCRIPTION (Continued) Signed (signature on file) Ciara Ayala MD 10/25 1457 END OF REPORT * ML=Testing performed at Main Lab DEPARTMENT OF PATHOLOGY, [facility] [place] [address] Dwight Rodriguez M.D. Director [facility] Permit #[id number] RUN DATE: 09/20/12 [facility] LAB LIVE PAGE 1 RUN TIME: 811 [facility] [place], [place] [address] Specimen Inquiry Name: NURY MORRISON : [address]: Damon Padilla MD Acct: [id number] Unit: [id number] AGE: 67 Location: ENDO Re09/19/12 SEX: F Status: REG REF SPEC: [id number] RAMIREZ: 09/19/12-[address] [facility] [address]: Damon Padilla MD REQ: [id number] RECD: 09/19/12 STATUS: GENESIS LOPEZ DR: Rosalia Brown MD _ SOURCE: GAS ANTRUM SPDESC: ORDERED: Clotest Procedure Result Verified Site Clotest Final 09/20/12810 ML Clotest Negative END OF REPORT * ML=Testing performed at Main Lab DEPARTMENT OF PATHOLOGY, [address] [place] [address] Dwight Rodriguez M.D. Director [facility] Permit #[id number] FASTING 12 HOUR Do in 2 [...] IN SELECTIVE PATIENTS <6.0%. PLEASE REFER TO [employer] DIABETIC CARE GUIDELINES FOR FURTHER [...] IN SELECTIVE PATIENTS <6.0%. PLEASE REFER TO [employer] DIABETIC CARE GUIDELINES FOR FURTHER INFORMATION. 47 Test Performed by: [facility] Dpt of Lab Med and Pathology [address] [place] [address] Compressor Stations Superintendent: Andrew Covington III, M.D. 48 Test Performed by: [facility] Dpt of Lab Med and Pathology [address] [place] [address] Compressor Stations Superintendent: Andrew Covington III, M.D. 49 Eosinophilia. REVIEWED [...] MG/DL Procedures Date Code Description Status 08/28/2017 [id number] Mammogram Completed 08/08/2016 70655 Repair Immediate Wound < 2.6CM Completed Face/Ear/Eyelid/Nose/Lip/Muc Mem 08/08/2016 83903 Excise Malig Lesion 1.1-2CM Face/Ear/Eyelid/Nose/Lip Completed 07/26/2016 19085 Layer Closure Of Wounds 2.6CM - 7.5CM Completed Neck,Hands,Feet,Genitalia 07/26/2016 78675 Excise Malig Lesion 1.1-2CM Completed Scalp/Neck/Hands/Feet/Genitalia 06/29/2016 08786 Each Additional Biopsy Completed 06/29/2016 28947 Biopsy Skin Lesion Single Completed 05/21/2015 95408 ECHO Stress Test Incl Perf Contiuous ekg Monitoring Completed W/Phys Superv 05/21/2015 00862 Stress ECHO Interpretation/Report Hospital Completed 05/21/2015 99641 Treadmill Interp/Report Only Completed 05/21/2015 52726 Stress Test Supervsn W/Out I/R Completed 05/12/2015 [id number] Mammogram Completed 05/06/2015 79040 EKG Tracing & Interpretation Completed 07/15/2014 64442 CLSD TX Distal Fib FX (Lateral Malleolus) w/o Completed manipulation 09/18/2013 45236759 Mammogram Completed 03/04/2013 28627 EKG Tracing & Interpretation Completed 02/20/2013 60717 Rad Exam; Wrist Limited, 2 Views Completed 01/30/2013 68396 Rad Exam; Wrist Limited, 2 Views Completed 01/16/2013 34068 CLST TRMT Distal Radial FX Completed 09/19/2012 22438553 Colonoscopy Completed 09/17/2012 98222 Myocardial Perfusion Imaging Tomographic (Spect) Completed Multiple Studies 09/17/2012 49447 Stress Test Completed 09/16/2012 [id number] Mammogram Completed 01/31/2012 27181 Rad Exam; Ankle Comp Completed 12/25/2011 77741 Rad Exam; Ankle Comp Completed 12/15/2011 54536 ORIF Open TX Distal Fibular FX Incl Internal Fixation Completed When Perfom 12/15/2011 44295 ORIF Open TX Distal Fibular FX Incl Internal Fixation Completed When Perfom 12/12/2011 79158 EKG, Interpretation Only Completed 12/07/2011 99219 closed treatment of medial malleolus fx w/o Completed maniplulation 09/15/2010 45411 Noninvasive Ear Or Pulse Oximetry For Oxygen Completed Saturation 06/09/2010 261124323 Diabetic Retinal Eye Exam Completed 12/15/2009 702592854 Bone Mineral Density Test Completed 12/07/2009 08005 EKG Tracing & Interpretation Completed 10/01/2008 59492024 Mammogram Completed 09/29/2008 35236 EKG Tracing & Interpretation Completed Encounters Type Date Location Provider Dx Diagnosis Office Visit 05/23/2018 11:20a [facility] Conrad Giron MD L29.8 Other pruritus L82.1 Other seborrheic keratosis L85.3 Xerosis cutis B35.1 Tinea unguium Z08 Encntr for follow-up exam after trtmt for malignant neoplasm Z85.828 Personal history of other malignant neoplasm of skin Office Visit 05/14/2018 [facility] Internal Carina Jaramillo, J45.41 Moderate 8:40a Medicine - [facility] N.P. 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 infection, site not specified Office Visit 08/14/2017 [facility] Internal [facility] Carina Z00.00 Encntr for 1:00p [facility] Varn, N.P. general adult medical exam w/o abnormal findings Z12.31 Encntr screen mammogram for malignant neoplasm of breast E78.00 Pure hypercholesterolemia, unspecified R73.01 Impaired fasting glucose J45.991 Cough variant asthma K21.9 Gastro-esophageal reflux disease without esophagitis Z85.828 Personal history of other malignant neoplasm of skin M25.551 Pain in right hip Office Visit 05/23/2017 9:30a [facility] Jennifer Giron MD K13.0 Diseases of lips L30.8 Other specified dermatitis R60.0 Localized edema L82.1 Other seborrheic keratosis B35.3 Tinea pedis B35.1 Tinea unguium Z08 Encntr for follow-up exam after trtmt for malignant neoplasm Z85.828 Personal history of other malignant neoplasm of skin Office Visit 08/17/2016 11:30a [facility] Jennifer Giron B37.2 Candidiasis of skin and nail Z48.02 Encounter for removal of sutures Office Visit 06/29/2016 9:30a [facility] Jennifer Giron L82.1 Other seborrheic keratosis L30.4 Erythema intertrigo D48.5 Neoplasm of uncertain behavior of skin C44.319 Basal cell carcinoma of skin of other parts of face Office Visit 06/07/2016 10:00a [facility] Internal Carina Jaramillo, M25.551 Pain in right [...] to excess calories Office Visit 11/02/2015 3:40p [facility] Internal Carina Jaramillo, M25.551 Pain in right Medicine - [facility] N.P. hip Office Visit 06/09/2015 11:20a [facility] Internal Carina Jaramillo, J45.991 Cough variant Medicine - [facility] N.P. asthma Office Visit 05/06/2015 9:00a [facility] Internal Carina Jaramillo, Z00.00 Encntr for Medicine - [facility] N.P. general adult medical exam w/o abnormal findings Z12.31 Encntr screen mammogram for malignant neoplasm of breast E78.0 Pure hypercholesterolemia R73.01 Impaired fasting glucose J45.991 Cough variant asthma K21.9 Gastro-esophageal reflux disease without esophagitis R06.02 Shortness of breath Z23 Encounter for immunization Office Visit 09/03/2014 8:40a [facility] Internal Carina Jaramillo, 401.1 Hypertension Benign Medicine - N.P. C[facility] Office Visit 06/25/2014 11:40a [facility] Internal James Odell NP 465.8 Upper Respiratory Medicine - Infections Acute [facility] Other Multiple Sites 465.9 URI Upper Respiratory Infections Acute Unspec Sites Office Visit 03/25/2014 4:00p [facility] Internal Gavin Easton NP 466.0 Bronchitis Acute Medicine - C[facility] Office Visit 03/06/2014 10:40a [facility] Internal Carina Jaramillo, V70.0 Examination Medicine - N.P. General Medical [facility] Routine AT Health Care Facility 401.1 Hypertension Benign 272.4 Hyperlipidemia Other Unspec 790.21 Impaired Fasting Glucose 493.82 cough variant asthma 530.81 Esophageal Reflux 625.6 Stress Incontinence Female V03.82 Streptococcus Pneumoniae Vaccination Spec Other Office Visit 08/27/2013 11:40a [facility] Internal Carina Jaramillo, 790.21 Impaired Medicine - Ccmob N.P. Fasting Glucose 272.4 Hyperlipidemia Other Unspec 401.1 Hypertension Benign V76.10 Screening For Malignant Neoplasm Breast Office Visit 05/07/2013 9:00a [facility] Internal Rosalia Brown, 388.31 Tinnitus Subjective Medicine - M.D., FACP C[facility] Office Visit 03/04/2013 10:00a [facility] Internal Rosalia Brown, V72.84 Examination Medicine - M.D., FACP Preoperative Unspec [facility] 366.10 Cataract Senile Unspec 493.82 cough variant asthma 466.0 Bronchitis Acute Office Visit 01/14/2013 3:20p [facility] Internal Carina Ella, 719.43 Pain Joint Forearm Medicine - N.P. C[facility] Office Visit 10/10/2012 1:00p [facility] Internal Rosalia Brown, 300.00 Anxiety State Medicine - M.D., FACP Unspec [facility] Office Visit 09/09/2012 10:40a [facility] Internal Rosalia Brown, V70.0 Examination Medicine - M.D., FACP General Medical [facility] Routine AT [facility] Care Facility 401.1 Hypertension Benign 272.0 Hypercholesterolemia Pure 493.82 cough variant asthma 300.00 Anxiety State Unspec V76.10 Screening For Malignant Neoplasm Breast 786.09 Dyspnea & Respiratory Abnormalities Other V06.1 Xzqctfdkxj-Jpzmepf-Juzezlxq Combined (DTaP) Office Visit 07/30/2012 1:00p [facility] Internal Medicine Rosalia Brown M.D., 786.2 Cough - Ccmob FACP 300.00 Anxiety State Unspec 780.52 Insomnia Unspecified Office Visit 05/08/2012 [facility] Internal Rosalia Brown, 272.0 Hypercholesterolemia Pure 9:40a Medicine - M.D., FACP [facility] 780.52 Insomnia Unspecified Office Visit 12/07/2011 2:30p Orthopedic Eduardo Baxter, 824.2 FX [facility]le [facility] Torres Malleolus Closed 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 Office Visit 03/13/2011 [facility] Internal Rosalia Stephanie, 272.0 Hypercholesterolemia Pure 11:40a Medicine - M.D., FACP [facility] Office Visit 09/15/2010 DO Not Use Rosalia Stephanie, 786.2 Cough 4:20p [facility] Chaves.Radhames, FACP Office Visit 09/01/2010 DO Not Use Rosalia Stephanie, 272.0 Hypercholesterolemia Pure 1:00p [facility] Chaves.Radhames, FACP 786.2 Cough 790.21 Impaired Fasting Glucose 380.4 Impacted Cerumen Office Visit 04/21/2010 2:00p DO Not Use [facility] Rosalia Stephanie, 786.2 Cough M.D., FACP 272.0 Hypercholesterolemia Pure 401.1 Hypertension Benign 790.21 Impaired Fasting Glucose Office Visit 01/13/2010 2:30p DO Not Use Rosalia Stephanie, 790.21 Impaired [facility] Chaves.Radhames, FACP Fasting Glucose 272.0 Hypercholesterolemia Pure 401.1 Hypertension Benign Office Visit 12/07/2009 1:30p DO Not Use Rosalia Stephanie, V70.0 Examination [facility]-Peyton Torres, FACP General Medical Routine AT Health Care Facility V76.2 Screening Malignant Neoplasm Cervix 272.0 Hypercholesterolemia Pure 401.1 Hypertension Benign 493.82 cough variant asthma V04.81 Need For Prophylactic Vaccination & Inoculation/Influenza Office Visit 09/21/2009 DO Not Use Rosalia Stephanie, 558.9 Gastroenteritis & 1:00p Oscar Torres, FACP Colitis Noninfectious Other Office Visit 09/09/2009 DO Not Use Rosalia Stephanie, 558.9 Gastroenteritis & 10:15a Oscar Torres, FACP Colitis Noninfectious Other Office Visit 08/18/2009 DO Not Use Carina 724.3 Sciatica 8:30a [facility] Varn, N.P. Office Visit 04/29/2009 DO Not Use Rosalia Stephanie, 786.2 Cough 1:30p [facility] Chaves.DJamaal, FACP 401.1 Hypertension Benign 493.90 Asthma Unspec W/O Status Asthmaticus V04.81 Need For Prophylactic Vaccination & Inoculation/Influenza Office Visit 01/20/2009 2:00p DO Not Use Rosalia Stephanie, 493.90 Asthma Unspec W/O Oscar Torres, FACP Status Asthmaticus 401.1 Hypertension Benign Office Visit 11/30/2008 DO Not Use Rosaliashine Brown, 272.4 Hyperlipidemia Other 10:00a Oscar Torres, FACP Unspec 401.1 Hypertension Benign V04.81 Need For Prophylactic Vaccination & Inoculation/Influenza Office Visit 09/29/2008 10:15a DO Not Use Rosaliashine Brown, V70.0 Examination Oscar Torres, FACP General Medical Routine AT Health Care Facility 272.4 Hyperlipidemia Other Unspec 493.82 cough variant asthma 401.1 Hypertension Benign V05.8 Single Disease Spec Other Vaccination & Inoculation Office 07/01/2008 DO Not Use Rosalia 272.0 Hypercholesterolemia Visit 9:15a Oscar Brown M.D., Pure FACP 427.89 Cardiac Dysrhythmia Other 493.90 Asthma Unspec W/O Status Asthmaticus 401.1 Hypertension Benign Plan of Treatment Future Appointment(s):08/26/2019 1:00 pm - Carina Jaramillo N.P. at [facility] am - Carina Jaramillo NJesús. at [facility] - Carina Jaramillo N.P.R19.7 Diarrhea, unspecifiedNew Medication:Florastor 250 mg - 1 by mouth twice a dayComments:For your diarrhea I would like you to follow a BRAT diet.B - BananasR - RiceA - ApplesauceT - Tea and toastAvoid dairy products, spicy, greasy, and gassy foods.I have prescribed a probiotic for you, Floraster. Take 1 tablet twice daily. In addition add a fiber supplement like Citrucel. If this does not gradually improve, pleased contact the office.
[2018-09-09 14:44] LABS: Albumin 3.9 g/dL (3.2-5.2); Albumin/Globulin Ratio 1.4 (1-3); BUN/Creatinine Ratio 10.4 (8-20); Calcium 9.7 mg/dL (8.6-10.3); EGFR African American 42.9 (>60); EGFR Non-African American 35.5 (>60); Globulin 2.8 g/dL (2-4); Potassium 4.3 mmol/L (3.5-5.0); Total Bilirubin 0.4 mg/dL (0.2-1.0); Total Protein 6.7 g/dL (6.4-8.9)
--- NOTE | 2018-09-09 16:21 | ED ---
Headache - HPI Summary HPI Summary: This pt is a 73 y/o female [facility]/o headache x4 days. Pt reports the posterior aspect of her head is tender to touch. She states it feels like her head will come off "specially when I cough." Additionally notes posterior neck pain. Denies fever. Pt has been taking Tylenol for her pain. Pt reports she has been having diarrhea for a couple of weeks now. She describes 5-6 episodes of diarrhea per day, with mucous but denies bloody stools. Today she has had 3 episodes of diarrhea. Denies recent antibiotics, prior to onset of diarrhea. Denies abd pain. Negative cryptosporidium and giardia and shiga toxin as of 09/07/18. Pt is followed up by Dr. Mcdonald every 6 months. Pt states she is having a kidney test is had to do a 24 hour urine catch that she turned in today. She has not seen a home economist consumer service. - History Of Current Complaint Chief Complaint: EDHeadache Stated Complaint: HEADACHE PER PT Time Seen by Provider: 09/09/18 16:12 Hx Obtained From: Patient Onset/Duration: Started days ago, Still Present Currently Pain Is: Moderate Timing: Constant Location of Headache: Occipital Aggravating Factor: Nothing Allevating Factors: Nothing Associated Signs And Symptoms: Neck Pain, Other (Noted In Comments) - POSITIVE: diarrhea - Allergies/Home Medications Allergies/Adverse Reactions: Allergies Allergy/AdvReac Type Severity Reaction Status Date / Time phenazopyridine Allergy Vomiting Verified 09/09/18 13:04 [From Pyridium] pseudoephedrine Allergy Tachycardia Verified 09/09/18 13:04 [From Sudafed] PMH/Surg Hx/FS Hx/Imm Hx Endocrine/Hematology History: Denies: Hx Diabetes Cardiovascular History: Reports: Hx Hypercholesterolemia, Hx Hypertension Denies: Hx Angina, Hx Pacemaker/ICD Respiratory History: Reports: Hx Asthma, Hx Chronic Obstructive Pulmonary Disease (COPD) GI History: Reports: Hx Gastroesophageal Reflux Disease - OK WITH DAILY MED, Hx Hiatal Hernia - SMALL, NO PROBLEMS History: Reports: Hx Kidney Infection - 2007, Hx Kidney Stones - 2007 SURGICALLY REMOVED Musculoskeletal History: Denies: Hx Rheumatoid Arthritis, Hx Osteoporosis Sensory History: Reports: Hx Cataracts - BILATERAL, Hx Contacts or Glasses - GLASSES Denies: Hx Hearing Aid Opthamlomology History: Reports: Hx Cataracts - BILATERAL, Hx Contacts or Glasses - GLASSES Psychiatric History: Reports: Hx Depression - ON ZOLOFT DAILY Denies: Hx Panic Disorder - Cancer History Hx Chemotherapy: No Hx Radiation Therapy: No - Surgical History Surgical History: Yes Surgery Procedure, Year, and Place: GB removed; hysterrectomy; catarcts; rt ankle fx repair Hx Anesthesia Reactions: Yes - SAVED HER LIFE Infectious Disease History: No Infectious Disease History: Denies: Traveled Outside the [place] in Last 30 Days - Family History Known Family History: Positive: Respiratory Disease - Father with emphysema Family History: Mother with breast CA - Social History Alcohol Use: Rare Substance Use Type: Reports: None Smoking Status (MU): Former Smoker Review of Systems Negative: Fever Positive: Diarrhea. Negative: Abdominal Pain Musculoskeletal: Other - POSITVE: neck pain Positive: Headache All Other Systems Reviewed And Are Negative: Yes Physical Exam - Summary Physical Exam Summary: Appearance: Well appearing, no pain distress Skin: warm, dry, reflects adequate perfusion Head/face: Tenderness over the occipital area of the head Eyes: EOMI, GLEN ENT: normal Neck: supple, non-tender Respiratory: CTA, breath sounds present Cardiovascular: RRR, pulses symmetrical Abdomen: non-tender, soft Musculoskeletal: normal, strength/ROM intact Neuro: normal, sensory motor intact, A&Ox3 Triage Information Reviewed: Yes Vital Signs On Initial Exam: Initial Vitals Temp Pulse Resp BP Pulse Ox 98.1 F 99 18 148/96 96 09/09/18 13:01 09/09/18 13:01 09/09/18 13:01 09/09/18 13:01 09/09/18 13:01 Vital Signs Reviewed: Yes - Eric Coma Scale Best Eye Response: 4 - Spontaneous Best Motor Response: 6 - Obeys Commands Best Verbal Response: 5 - Oriented Coma Scale Total: 15 Diagnostics - Vital Signs Vital Signs Temp Pulse Resp BP Pulse Ox 09/09/18 15:23 99.1 F 89 16 153/72 99 09/09/18 13:01 98.1 F 99 18 148/96 96 - Laboratory Lab Results: Lab Results 09/09/18 09/09/18 Range/Units 13:53 13:53 Sodium 138 (135-145) mmol/L Potassium 4.3 (3.5-5.0) mmol/L Chloride 107 (101-111) mmol/L Carbon Dioxide 25 (22-32) mmol/L Anion Gap 6 (2-11) mmol/L BUN 15 (6-24) mg/dL Creatinine 1.44 H (0.51-0.95) mg/dL Est GFR ( Amer) 42.9 (>60) Est GFR (Non-Af Amer) 35.5 (>60) BUN/Creatinine Ratio 10.4 (8-20) Glucose 111 H (70-100) mg/dL Lactic Acid 1.2 (0.5-2.0) mmol/L Calcium 9.7 (8.6-10.3) mg/dL Total Bilirubin 0.40 (0.2-1.0) mg/dL AST 25 (13-39) U/L ALT 22 (7-52) U/L Alkaline Phosphatase 142 H (34-104) U/L Total Protein 6.7 (6.4-8.9) g/dL Albumin 3.9 (3.2-5.2) g/dL Globulin 2.8 (2-4) g/dL Albumin/Globulin Ratio 1.4 (1-3) Result Diagrams: 09/09/18 17:08 09/09/18 13:53 Lab Statement: Any lab studies that have been ordered have been reviewed, and results considered in the medical decision making process. - CT Brain CT CT Interpretation Completed By: Radiologist Summary of CT Findings: IMPRESSION: No acute intracranial pathology. Dr. Rivera has reviewed this report. Re-Evaluation - Re-Evaluation First Eval Re-Evaluation Time: 17:46 Comment: Reviewed lab and CT results with pt. She will be discharged home. Headache Course/Dx - Course Assessment/Plan: Pt is a 73 y/o female presenting to [facility] c/o headache x4 days. Pt reports the posterior aspect of her head is tender to touch. She states it feels like her head will come off "specially when I cough." Additionally notes posterior neck pain. Denies fever. Test results are unremarkable except for creatinine of 1.44. UA with 1+ leukocytes, 2+ WBC, 1+ bacteria. Brain CT shows no acute intracranial pathology. In the ED course the pt was given IV fluids and tylenol. She will be discharged home with follow up from GI and PCP. Pt was instructed to return for any worsening or new symptoms. 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 Galeana. Please follow up with your primary care provider in 3 days. RETURN TO THE ED FOR ANY NEW OR WORSENING SYMPTOMS. - Attestation Statements Document Initiated by Scribe: Yes Documenting Scribe: Nadia Duff Provider For Whom Scribe is Documenting (Include Credential): Tod Rivrea MD Scribe Attestation: Nadia Carrera, scribed for Tod Rivera MD on 09/09/18 at 1804. Status of Scribe Document: Ready
[2018-09-09] MEDS ORDERED: NS 0.9% 1000 ML** 1,000 ML IV ONE (16:26)
[2018-09-09 17:16] LABS: ABS Eosinophils 0.2 10^3/ul (0-0.6); ABS Monocytes 1.2 10^3/ul (0-0.8); ABS Neutrophils 6.9 10^3/ul (1.5-7.7); Eosinophil % 1.9 %; Hematocrit 35 % (35-47); Lymphocyte % 11.2 %; Mean Corpuscular HGB Conc 34 g/dL (31-36); Mean Corpuscular Hemoglobin 27 pg (27-31); Mean Corpuscular Volume 81 fL (80-97); Platelet Count 302 10^3/uL (150-450); Red Blood Count 4.38 10^6 /uL (3.70-4.87); Red Cell Distribution Width 15 % (10-15); White Blood Count 9.3 10^3/uL (3.5-10.8)
[2018-09-09 17:59] LABS: Urine Appearance Clear; Urine Bacteria 1+ (Absent); Urine Bilirubin Negative (Negative); Urine Blood Negative (Negative); Urine Color Yellow; Urine Glucose Negative (Negative); Urine Ketones Negative (Negative); Urine Nitrite Negative (Negative); Urine Protein Negative (Negative); Urine Red Blood Cell Trace(0-2/hpf) (Absent); Urine Urobilinogen Negative (Negative); Urine White Blood Cell 2+(11-20/hpf) (Absent)
[2018-09-09] MEDS ORDERED: Acetaminophen TAB* 325 MG PO ONE (17:59)
[2018-09-09 18:16] VITALS: BP 155/79
== END 2018-09-09 18:19 | disposition home or self-care (01) ==
LOC: ED 12:58
DX: R51 Headache (principal); R19.7 Diarrhea, unspecified; Z88.8 Allergy status to other drugs, medicaments and biological substances; E78.00 Pure hypercholesterolemia, unspecified; I10 Essential (primary) hypertension; J44.9 Chronic obstructive pulmonary disease, unspecified; K21.9 Gastro-esophageal reflux disease without esophagitis; Z79.899 Other long term (current) drug therapy; Z87.891 Personal history of nicotine dependence; R79.89 Other specified abnormal findings of blood chemistry
CPT/HCPCS: 36415; 70450; 80053; 81003; 81015; 83605; 85025; 87086; 96360; 99283; A9270-GY

== ENCOUNTER 2018-12-20 18:09 | Emergency (ER) | payer MEDICARE ==
--- OUTSIDE RECORDS SUMMARY | 2018-12-20 18:17 | XMS REPORT | Continuity of Care Document ---
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 Onset: 10/12/2016 Presbyopia Atul Ellis O.D. Onset: 04/22/2014 Visual disturbance Atul Ellis O.D. Onset: 04/22/2014 Vitreous degeneration Atul Ellis O.D. Onset: 04/22/2014 Type 2 diabetes mellitus Atul Ellis O.D. Onset: 10/23/2013 Lens Replaced By Other Means Atul Ellis O.D. Onset: 03/24/2013 Status Post Surgery Marlon Abel M.D. Onset: 03/12/2013 Social History Type Date Description Comments Sex Unknown ETOH Use Occasionally consumes alcohol Tobacco Use Start: Unknown End: Unknown Patient is a former smoker Smoking Status Reviewed: 11/12/18 Patient is a former smoker Allergies, Adverse Reactions, Alerts Active Allergies Reaction Severity Comments Date Pseudoephedrine 03/05/2013 Pyridium 03/05/2013 Medications Active Medications SIG Qnty Indications Ordering Provider Date Preservision Areds 2 + Unknown Multi Vitamin Areds 2 Capsules Fish Oil 1 by mouth Unknown 1000mg Capsules every day Multivitamin Adult Unknown Tablets Melatonin Unknown 5mg Capsules Biotin Unknown 2500mcg Capsules Mucinex Unknown 600mg Tablets ER 12HR Garlic Unknown 1200mg Capsules Pravastatin Sodium Unknown 40mg Tablets Spiriva Respimat Unknown 2.5mcg/Act Aerosol Losartan Potassium Unknown 100mg Tablets Methylphenidate HCL Unknown 5mg Tablets Diltiazem HCL ER Unknown 240mg Caps ER 24HR Omeprazole Unknown 20mg Capsules DR Henry Diskus Unknown 250-50mcg/Dose Aerosol Sertraline HCL Unknown 25mg Tablets Potassium Citrate Unknown 10Meq (1080 mg) Tablets ER Advair Diskus Unknown 500-50mcg/Dose Aerosol Methylphenidate HCL ER Unknown 18mg Tablets ER Immunizations Description No Information Available Vital Signs Date Vital Result Comment 11/12/2018 3:14pm Intraocular Pressure Right Eye 14 mmHg Intraocular Pressure Left Eye 14 mmHg 09/06/2017 11:27am Intraocular Pressure Right Eye 14 mmHg Results Description No Information Available Procedures Date Code Description Status 11/12/2018 39791 Fundus Photography W/Interpretation & Report Completed 11/12/2018 20412 Eye Exam Est Comprehensive Completed Medical Devices Description No Information Available Encounters Description No Information Available Assessments Date Code Description Provider 11/12/2018 H00.11 Chalazion right upper eyelid Atul Guerra, OD 11/12/2018 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, bilateral Atul Guerra , OD 11/12/2018 Z96.1 Presence of intraocular lens Atul Guerra, OD 11/12/2018 E11.9 Type 2 diabetes mellitus without complications Atul Guerra, OD 11/12/2018 H43.813 Vitreous degeneration, bilateral Atul Guerra, OD 11/12/2018 H52.4 Presbyopia Atul Guerra, OD Plan of Treatment Future Appointment(s):05/14/2019 1:30 pm - Atul Guerra, OD at [facility] [id number] - Atul Guerra, ODH00.11 Chalazion right upper eyelidFollow up:6 mos mac OCT, sooner PRN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, bilateralFollow up: 6 mos mac OCT, sooner PRNZ96.1 Presence of intraocular lensFollow up:6 mos mac OCT, sooner PRNE11.9 Type 2 diabetes mellitus without complicationsFollow up:6 mos mac OCT, sooner PRNH43.813 Vitreous degeneration, bilateralFollow up:6 mos mac OCT, sooner PRNH52.4 PresbyopiaFollow up:6 mos mac OCT, sooner PRN Functional Status Description No Information Available Mental Status Description No Information Available Referrals Description No Information Available
[2018-12-20] MEDS ORDERED: Clindamycin CAP* 150 MG PO ONE (18:31)
[2018-12-20] MEDS ORDERED: Lidocaine 2% w EPI 1:100,000* 20 ML MDV VIAL INJ ONE (19:13)
--- NOTE | 2018-12-20 19:18 | UC ---
Head Injury HPI - HPI Summary HPI Summary: 73 year old female, on no antioagluant, fell on black ice around 5:30 this evening, no loss of consciousness, no headache although pain over laceration + bleeding, controlled. able to ambulate afterwards without difficulty. no vision changes, no memory difficulty. - History Of Current Complaint Chief Complaint: UCHeadInjury Stated Complaint: HEAD INJURY Time Seen by Provider: 12/20/18 19:02 Hx Obtained From: Patient ?: No Onset/Duration: Sudden Onset, Lasting Hours Severity Currently: Moderate Severity Initially: Moderate Pain Intensity: 5 Pain Scale Used: 0-10 Numeric Character: Dull, Throbbing Aggravating Factor(s): Nothing Alleviating Factor(s): Nothing Associated Signs And Symptoms: Negative: LOC (Time In Secs./Mins/Hrs), LOC Duration Unknown, Confusion, Memory Loss, Epistaxis, Dental Malocclusion, Neck Pain, Nausea, Vomiting - Allergies/Home Medications Allergies/Adverse Reactions: Allergies Allergy/AdvReac Type Severity Reaction Status Date / Time phenazopyridine Allergy Vomiting Verified 12/20/18 18:23 [From Pyridium] pseudoephedrine Allergy Tachycardia Verified 12/20/18 18:23 [From Sudafed] PMH/Surg Hx/FS Hx/Imm Hx Previously Healthy: Yes - Surgical History Surgical History: Yes Surgery Procedure, Year, and Place: GB removed; hysterrectomy; catarcts; rt ankle fx repair - Family History Known Family History: Positive: Respiratory Disease - Father with emphysema Family History: Mother with breast CA - Social History Occupation: Retired Alcohol Use: Occasionally Substance Use Type: None Smoking Status (MU): Former Smoker Review of Systems All Other Systems Reviewed And Are Negative: Yes Constitutional: Negative: Fever, Chills, Fatigue Skin: Negative: Rash, Bruising, Other Neurological: Negative: Weakness Psychological: Positive: Negative Is Patient Immunocompromised?: No Physical Exam - Summary Physical Exam Summary: - no scalp deformity, no bone visible Triage Information Reviewed: Yes Appearance: Well-Appearing, No Pain Distress, Well-Nourished Vital Signs: Initial Vital Signs Temp 98.7 F 12/20/18 18: Pulse 85 12/20/18 18:19 Resp 16 12/20/18 18:19 BP 155/66 12/20/18 18: Pulse Ox 100 12/20/18 18:19 Eyes: Positive: Conjunctiva Clear, Other: - EMOI, PEERLA ENT: Positive: Hearing grossly normal Neck: Positive: Supple, Nontender, No Lymphadenopathy, Nuchal Rigidity, Enlarged Nodes @, Other: - full ROM without pain non-tender to palp over cerivcal spine Respiratory: Positive: Chest non-tender Neurological Exam: Normal Neurological: Positive: Alert, Other: - finger to nose, one leg standing b/l, forward/ backward walking, CN grossly intact/ WNLs. sensation intact UEs Psychological Exam: Normal Psychological: Positive: Other: - AOX3 Skin: Positive: Other - ~ 3cm laceration to posteriod scalp, full thickness without deformity to skull, no bone visible, bleeding controlled. Procedures - Sedation Patient Received Moderate/Deep Sedation with Procedure: No - Laceration/Wound Repair 1 Location: head - posterior scalp Description: Linear Anesthesia: 2.0%, Lido, Epi Length, Depth and Shape: full thickness, half turner 3cm x 5mm x 5mm Betadine Prep?: No - chlrohexadine Laceration/Wound Explored: clean Closure: Single Layer, [place] #__ - 6 Debridement: minimal Layer Closure?: No Sterile Dressing Applied?: No Head Injury Course/Dx - Course Course Of Treatment: laceration, posterior scalp - 6 Denys to be removed in 7-10 days, may follow up with primary or return here for removal - Tylenol as needed for pain four times a day, 500-1000mg - Monitor for 6 hours after incident- with any changes go to ER for further evaluation. - Staple care- OK to shower 24-48 hours after fall, no submerging/ bathing. running water OK, mild soap such as baby soap or water only. Be careful brushing hair, wearing hats. - Avoid motrin/ ibuprofen - Differential Dx/Diagnosis Differential Diagnosis/HQI/PQRI: Contusion, Skull Fracture Provider Diagnosis: Laceration of scalp Discharge ED - Sign-Out/Discharge Documenting (check all that apply): Patient Departure All imaging exams completed and their final reports reviewed: No Studies - Discharge Plan Condition: Good Disposition: HOME Patient Education Materials: Laceration (DC), Staple Care (ED) Referrals: Carina Jaramillo NP [Primary Care Provider] - Additional Instructions: - 6 Denys to be removed in 7-10 days, may follow up with primary or return here for removal - Tylenol as needed for pain four times a day, 500-1000mg - Monitor for 6 hours after incident- with any changes go to ER for further evaluation. - Staple care- OK to shower 24-48 hours after fall, no submerging/ bathing. running water OK, mild soap such as baby soap or water only. Be careful brushing hair, wearing hats. - Avoid motrin/ ibuprofen - Billing Disposition and Condition Condition: GOOD Disposition: Home
[2018-12-20 20:27] VITALS: BP 158/75
== END 2018-12-20 19:55 | disposition home or self-care (01) ==
LOC: UCEAST 18:09
DX: S01.01XA Laceration without foreign body of scalp, initial encounter (principal); Z87.891 Personal history of nicotine dependence; Z88.8 Allergy status to other drugs, medicaments and biological substances; W00.9XXA Unspecified fall due to ice and snow, initial encounter; Y92.9 Unspecified place or not applicable
CPT/HCPCS: 12002; 99211; G0463